=== PATIENT | female | born 1950 | race Caucasian/White ===

== ENCOUNTER 2018-09-20 21:16 | Inpatient (IN) | payer MEDICARE, MEDICAID ==
[~2018-09-20 21:16] MED LIST: ISOVUE-370 76%-LOCM 1 ML ONE
[2018-09-20 21:39] LABS: Hemoglobin 16.8 g/dL (12.0-16.0); Mean Corpuscular HGB CONC 32.2 g/dL (32.0-36.0); Mean Corpuscular Hemoglobin 30.3 pg (27.0-31.0); Mean Corpuscular Volume 94.2 fL (78.0-98.0); Mean Platelet Volume 7.8 fL (7.4-10.4); Platelet Count 345 thou/uL (130-400); RBC Distribution Width 13.4 % (11.5-14.5); Red Blood Cell (RBC) Count 5.53 mill/uL (4.20-5.40)
[2018-09-20 21:57] LABS: Band 5 % (5-11); Lymphocytes 4 % (21-51); MDiff Complete? YES; Monocytes 1 % (0-10); Neutrophil 90 % (42-75); Nucleated RBC 1 % (0); Platelet Morphology Comment Appears Adequate; RBC Morphology Normal
[2018-09-20 22:01] LABS: ALT (SGPT) 17 U/L (8-55); AST (SGOT) 15 U/L (5-34); Albumin 4.3 g/dL (3.4-4.8); Alkaline Phosphatase 180 U/L (40-150); Anion Gap 18 mmol/L (10-20); BUN (Urea Nitrogen) 14 mg/dL (9.8-20.1); Bilirubin, Total 0.5 mg/dL (0.2-1.2); CK (CPK) 26 U/L (29-168); Calc. Creatinine Clearance 0 mL/min (70-130); Calcium 10.2 mg/dL (7.8-10.44); Carbon Dioxide 17 mmol/L (23-31); Chloride 106 mmol/L (98-107); Estimated GFR-MDRD Greater than 90; Globulin 3.2 g/dL (2.4-3.5); Glucose 183 mg/dL (80-115); Potassium 3.7 mmol/L (3.5-5.1); Protein, Total 7.5 g/dL (6.0-8.3); Sodium 137 mmol/L (136-145)
[2018-09-20 22:11] LABS: Bilirubin Moderate (Negative); Blood, Urine Moderate (Negative); Clarity TURBID (Clear); Glucose, Urine (Dipstick) Negative (Negative); Leukocyte Large (Negative); Nitrite Positive (Negative); Protein, Urine (Dipstick) > or equal to 300 mg/dL (Neg-Trace); Specific Gravity, Urine 1.029 (1.002-1.036)
[2018-09-20 22:13] LABS: Yeast-AUWi Flag 6.2 (0-25.0)
[2018-09-20 22:16] LABS: Pathc Cast-AUWi Flag 2.76 (0-2.49)
--- NOTE | 2018-09-20 22:16 | RAD ---
CHEST ONE VIEW: 09/20/18 INDICATION: Nausea, vomiting from care home. COMPARISON: Prior exam dated 07/01/16. IMPRESSION: Elevation of the right hemidiaphragm. Small right pleural effusion persists. There is mild cardiomega ly. There is mild pulmonary vascular congestion. Osseous structures are unchanged. IMPRESSION: 1. Cardiomegaly with pulmonary vasculature congestion with small right pleural effusion suggests CHF. 2. Stable elevation of the right hemidiaphragm. POS: [facility]
[2018-09-20 22:24] LABS: RBC/HPF 21-50 HPF (0-3)
[2018-09-20 22:25] LABS: Bacteria/HPF 4+ HPF (None Seen); Crystals/HPF 2+ TRIPLE PHOS HPF (Negative); Hyaline Casts/LPF NONE SEEN LPF (0-3 Hyaline); Squamous Epithelial 0-3 HPF (0-3)
[2018-09-20] MEDS ORDERED: Ondansetron PF 4 MG/2 ML Vial ONE (22:54)
--- NOTE | 2018-09-20 23:28 | CT ---
CT OF THE ABDOMEN AND PELVIS WITH IV CONTRAST: 09/20/18 INDICATION: Vomiting. COMPARISON: Prior CT of the abdomen dated 05/12/03. FINDINGS: Again seen are multiple right hepatic lobe cysts. There is a small hiatal hernia. There is fluid density within the distal esophagus. There is a small right pleural effusion. The pancreas, adrenal gland and kidneys appear within normal limits. Spleen is normal appearing. There is a prominent amount of retained stool within the rectum and colon. There is fluid density see n within the ascending colon and transverse colon which can be related to mild colitis or diarrheal s mckinney. There is a suprapubic Brennan catheter in place. 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 There is a healed instrumented left hip fractur e. There is diffuse osteopenia. There is mild compression abnormality of L3 that appears chronic. IMPRESSION: 1. Fluid density seen within the right hemicolon and transverse colon can be seen with mild diar rheal states or colitis. There is prominent amount of retained stool within the rectum and sigmoid co kelsi. 2. Suprapubic bladder catheter. 3. Small right pleural effusion and right basilar atelectasis. 4. Fluid density within the esophagus may reflect reflux or dysmotility. 5. Right hepatic lobe cyst. 6. Cholecystectomy. 7. Chronic appearing L3 compression abnormality. 8. Diffuse osteopenia. 9. Fracture nonunion of right hip. POS: [facility]
[2018-09-20] MEDS ORDERED: cefTRIAXone\\ROCEPHIN 1 GM VIAL ONE (23:40)
[2018-09-21 01:09] LABS: Troponin I Less than 0.010 ng/mL (< 0.028)
--- NOTE | 2018-09-21 01:53 | HP ---
PRIMARY CARE PHYSICIAN: The patient is a senior care resident. CHIEF COMPLAINT: Nausea and vomiting. HISTORY OF PRESENT ILLNESS: Ms. Roshni Rhoades is a 68-year-old female with past medical history of multiple sclerosis, neurogenic bladder, acid reflux, hypertension, hypothyroidism, who presents to the emergency department from the senior care for intractable nausea and vomiting. The patient is a long-term resident of the senior care. She was having intractable nausea, vomiting, but denies any blood in stool, presents to the ER with complaints of nausea, and vomiting. The patient has been having difficulty tolerating her p.o. diet. The patient denies any diarrhea, does not report any abdominal pain at this point. The patient has a chronic suprapubic catheter that is changed at the senior care. CURRENT MEDICATIONS: 1. Amlodipine. 2. Baclofen. 3. Vitamin B12. 4. Mirapex. 5. Trileptal. 6. Senna. 7. Melatonin. 8. Oxybutynin. 9. Omeprazole. 10. Levothyroxine. 11. Ferrous sulfate. 12. Citalopram. Allergies: Adhesive PAST MEDICAL HISTORY: Mentioned in the HPI. PAST SURGICAL HISTORY: 1. Appendectomy. 2. Cholecystectomy. 3. Hysterectomy. SOCIAL HISTORY: The patient lives in a senior care. She does not smoke, drink , or use any illicit drugs. FAMILY HISTORY: Noncontributory, reviewed that was given by the family member. PHYSICAL EXAMINATION: VITAL SIGNS: Blood pressure 115/69, pulse rate 103, respiration rate 17, temperature 97.9, O2 saturation 99% on room air. GENERAL: The patient is alert, is conversational, but seems to be bedbound. The patient has a slow speech. HEAD: Atraumatic. EARS AND NOSE: No drainage or bleeding noted. MOUTH: No exudate. NECK: No lymphadenopathy. HEART: The patient is tachycardic, regular rhythm. No murmur, rubs, or gallops. RESPIRATORY: Clear bilaterally. No wheezes or rales. ABDOMEN: Soft, and nontender. Bowel sounds diminished. The patient has a suprapubic catheter. EXTREMITIES: No edema. No tone noted in lower extremities. NEUROLOGIC: The patient is alert. No strength in her lower extremities. SKIN: No rashes noted on observation. DIAGNOSTIC STUDIES: CT abdomen and pelvis. Impression, fluid density seen within the right hemicolon and transverse colon, it can be seen with mild diarrheal state or colitis, that is prominent amount of retained stool within the rectum and sigmoid colon, a suprapubic bladder catheter, a small right pleural effusion and right basilar atelectasis. Fluid density within the esophagus may reflect reflux or dysmotility, right hepatic lobe cysts, cholecystectomy, chronic-appearing L3 with compression abnormality, diffuse osteopenia, fracture, nonunion of right hip. Chest x-ray, cardiomegaly with pulmonary vascular congestion with small right pleural perfusion, stable, elevated right hemidiaphragm. LABORATORY DATA: WBC 17, hemoglobin 16.8, hematocrit 52.1, platelets 345. Sodium 137, potassium 3.7, chloride 106, carbon dioxide 17, BUN 14, creatinine 0.56, glucose 183. Lactic acid is 2.1. AST 15, ALT 17, alkaline phosphatase 180, and creatine kinase 26. Troponin negative. Lipase 18. Urinalysis significant for proteinuria, ketone positive, moderate amount of blood, nitrites positive, bilirubin moderate, leukocyte esterase large, RBC 12-50, WBC greater than 50, squamous epithelial 0-3. Urine bacteria 4+. ASSESSMENT AND PLAN: 1. Pyelonephritis due to urinary catheter. 2. Colitis. 3. Hypothyroidism. 4. Hypertension. 5. Gastroesophageal reflux disease. 6. Multiple sclerosis 7. Nausea and vomiting 8. Leukocytosis 9. Sepsis present on admission likely from pyelonephritis and colitis The patient was given ceftriaxone in the ER. Given UTI and possible colitis, we will switch antibiotics to Zosyn at this point. Follow blood cultures. We will keep patient n.p.o. given her nausea, vomiting. Zofran p.r.n. added. Once the patient feels better , we can start her diet. The patient at senior care is on pureed diet. We will continue with IV fluids at gentle pace. We will have home medications order once it has been verified. Repeat labs in the morning. Medical power of senior trial attorney, patient's brother. Code status, the patient is a DNR per paperwork from senior care and per family. DVT prophylaxis addressed. Job ID: [id number] [facility]
[2018-09-21 02:38] LABS: Lactic Acid 2.1 mmol/L (0.5-2.2)
[2018-09-21 02:45] VITALS: BMI 27.2
[2018-09-21] MEDS ORDERED: Ondansetron ODT 4 MG TAB SL PRN (04:35)
[2018-09-21] MEDS ORDERED: Acetaminophen 325 MG TAB PO PRN ×2 (04:35→07:48)
[2018-09-21] MEDS ORDERED: Ondansetron PF 4 MG/2 ML Vial IVP PRN (04:35)
[2018-09-21] MEDS ORDERED: 1/2 NS w/KCL 20 mEq 1,000 ML IV SCH (04:45)
[2018-09-21 05:21] LABS: Troponin I Less than 0.010 ng/mL (< 0.028)
[2018-09-21] MEDS ORDERED: Polyethylene Glycol 3350 17 GM Packet PO PRN (07:49)
[2018-09-21] MEDS ORDERED: Bisacodyl 10 MG SUPP PR PRN (07:51)
[2018-09-21] MEDS ORDERED: Fleet Enema 133 ML BOT PR PRN (07:51)
[2018-09-21] MEDS: Sodium Chloride 0.9% 1,000 ML IV SCH ×2 (08:39→21:04)
[2018-09-21] MEDS: Baclofen 10 MG TAB PO SCH ×2 (08:42→21:04)
[2018-09-21] MEDS: Citalopram 10 MG TAB PO SCH (08:42)
[2018-09-21] MEDS: Amlodipine 5 MG TAB PO SCH (08:42)
[2018-09-21] MEDS: Senokot S 8.6-50 MG TAB PO SCH ×2 (08:43→21:06)
[2018-09-21] MEDS: Levothyroxine Sodium 25 MCG TAB PO SCH (08:43)
[2018-09-21] MEDS: Cyanocobalamin (Vitamin B-12) 1,000 MCG TAB PO SCH (08:43)
[2018-09-21] MEDS ORDERED: Non-Formulary Item 1 EACH (Omeprazole [Omeprazole] 20 MG) PO SCH (09:00)
[2018-09-21] MEDS ORDERED: Prevnar 13-Val Conj/PF 0.5 ML SYRINGE IM ONE (09:00)
[2018-09-21] MEDS ORDERED: SENNOSIDES PO SCH (09:00)
[2018-09-21] MEDS ORDERED: DOCUSATE SODIUM PO SCH (09:00)
[2018-09-21] MEDS: OXcarbazepine 300 MG TAB PO SCH ×2 (09:28→21:05)
[2018-09-21] MEDS: Piperacillin/Tazobactam 3.375 GM in Sodium Chloride 0.9% 100 ML IVPB SCH ×3 (12:39→23:24)
--- NOTE | 2018-09-21 15:09 | PDOC.PN ---
- Subjective Encounter Start Date: 09/21/18 Encounter Start Time: 12:30 Subjective: lethargic, responds to verbal stimuli -: brother at bedside - Objective Resuscitation Status - Order Detail: 09/21/18 00:39 Resuscitation Status Routine Resuscitation Status: DNAR: NO Resuscitation Discussed with: per paperwork from care home and family MAR Reviewed: Yes Vital Signs & Weight: Vital Signs (12 hours) Temp Pulse Pulse Ox 09/21/18 12:00 99.5 F 09/21/18 08:42 123 H 09/21/18 08:00 100.2 F H 94 L 09/21/18 03:43 98.2 F Weight Weight 153 lb 12.8 oz Most Recent Monitor Data Heart Rate from ECG 97 NIBP 123/57 NIBP BP-Mean 79 Respiration from ECG 30 SpO2 92 I&O: 09/20/18 09/21/18 09/22/18 06:59 06:59 06:59 Intake Total 600 Output Total 375 Balance 225 Result Diagrams: 09/20/18 21:32 09/20/18 21:32 Phys Exam - Physical Examination HEENT: PERRLA, moist MMs Neck: no JVD, supple Respiratory: no wheezing, no rales Cardiovascular: RRR, no significant murmur Gastrointestinal: soft, non-tender, positive bowel sounds spc+ Musculoskeletal: no edema, pulses present has contractures of all 4 limbs, severe kyphosis Dx/Plan (1) Acute encephalopathy Code(s): G93.40 - ENCEPHALOPATHY, UNSPECIFIED Status: Acute (2) H/O multiple sclerosis Code(s): Z86.69 - PERSONAL HISTORY OF DIS OF THE NERVOUS SYS AND SENSE ORGANS Status: Chronic (3) Functional quadriplegia secondary to MS Code(s): G35 - MULTIPLE SCLEROSIS; R53.2 - FUNCTIONAL QUADRIPLEGIA Status: Chronic (4) Neurogenic bladder Code(s): N31.9 - NEUROMUSCULAR DYSFUNCTION OF BLADDER, UNSPECIFIED Status: Chronic Comment: spc+ (5) HTN (hypertension) Code(s): I10 - ESSENTIAL (PRIMARY) HYPERTENSION Status: Chronic Qualifiers: Hypertension type: essential hypertension Qualified Code(s): I10 - Essential (primary) hypertension (6) Hypothyroidism Code(s): E03.9 - HYPOTHYROIDISM, UNSPECIFIED Status: Chronic Qualifiers: Hypothyroidism type: unspecified Qualified Code(s): E03.9 - Hypothyroidism , unspecified (7) Dehydration Code(s): E86.0 - DEHYDRATION Status: Acute (8) UTI (urinary tract infection) Status: Acute Qualifiers: Urinary tract infection type: acute cystitis Hematuria presence: without hematuria Qualified Code(s): N30.00 - Acute cystitis without hematuria - Plan is on zosyn, d/w brother at bedside -: gentle iv hydration -: on trileptal, pramipexole, norvasc -: oral diet, speech eval -: poor prognosis, is DNAR * . Review of Systems - Medications/Allergies Allergies/Adverse Reactions: Allergies Allergy/AdvReac Type Severity Reaction Status Date / Time adhesive Allergy Verified 04/23/15 00:06 No Known Drug Allergies Allergy Verified 04/22/15 18:24 Medications: Current Medications Acetaminophen (Tylenol) 650 mg PO Q6H PRN PRN Reason: fever Amlodipine Besylate (Norvasc) 5 mg PO DAILY [facility] Last Admin: 09/21/18 08:42 Dose: 5 mg Baclofen (Lioresal) 30 mg PO BID [facility] Last Admin: 09/21/18 08:42 Dose: 30 mg Bisacodyl (Dulcolax) 10 mg [place] Q8H PRN PRN Reason: Constipation Citalopram Hydrobromide (Celexa) 5 mg PO Q2DAYS [facility] Last Admin: 09/21/18 08:42 Dose: 5 mg Cyanocobalamin (Vitamin B-12) 1,000 mcg PO DAILY [facility] Last Admin: 09/21/18 08:43 Dose: 1,000 mcg Piperacillin Sod/Tazobactam (Sod 3.375 gm/ Sodium Chloride) 100 mls @ 200 mls/ hr IVPB Q6HR [facility] Last Admin: 09/21/18 12:39 Dose: 100 mls Sodium Chloride (Normal Saline 0.9%) 1,000 mls @ 75 mls/hr IV .[id number] [facility] Last Admin: 09/21/18 08:39 Dose: 1,000 mls Levothyroxine Sodium (Synthroid) 25 mcg PO QAM [facility] Last Admin: 09/21/18 08:43 Dose: 25 mcg Melatonin (Melatonin) 3 mg PO HS [facility] Ondansetron HCl (Zofran) 4 mg IVP Q6H PRN PRN Reason: Nausea/Vomiting Oxcarbazepine (Trileptal) 450 mg PO BID [facility] Last Admin: 09/21/18 09:28 Dose: 450 mg Pantoprazole Sodium (Protonix) 40 mg PO DAILY [facility] Last Admin: 09/21/18 08:43 Dose: 40 mg Polyethylene Glycol (Miralax) 17 gm PO DAILY PRN PRN Reason: Constipation Pramipexole Dihydrochloride (Mirapex) 0.25 mg PO QPM [facility] Senna/Docusate Sodium (Senokot S) 2 tab PO BID [facility] Last Admin: 09/21/18 08:43 Dose: 2 tab Sodium Biphosphate/Sodium Phosphate (Fleet Enema) 133 ml [place] ONE PRN PRN Reason: constipation Stop: 09/21/18 21:00 Sodium Chloride (Flush - Normal Saline) 10 ml IVF Q12HR [facility] Last Admin: 09/21/18 09:36 Dose: 10 ml Sodium Chloride (Flush - Normal Saline) 10 ml IVF PRN PRN PRN Reason: Saline Flush
[2018-09-21] MEDS: Pramipexole Di-HCl 0.25 MG TAB PO SCH (21:06)
[2018-09-21] MEDS: Melatonin 3 MG TAB PO SCH (21:06)
[2018-09-22] MEDS: Piperacillin/Tazobactam 3.375 GM in Sodium Chloride 0.9% 100 ML IVPB SCH ×4 (06:20→23:50)
[2018-09-22] MEDS: Amlodipine 5 MG TAB PO SCH (08:47)
[2018-09-22] MEDS: Baclofen 10 MG TAB PO SCH ×2 (08:47→21:16)
[2018-09-22] MEDS: OXcarbazepine 300 MG TAB PO SCH ×2 (08:48→21:19)
[2018-09-22] MEDS: Levothyroxine Sodium 25 MCG TAB PO SCH (08:48)
[2018-09-22] MEDS: Cyanocobalamin (Vitamin B-12) 1,000 MCG TAB PO SCH (08:48)
[2018-09-22] MEDS: Senokot S 8.6-50 MG TAB PO SCH ×2 (08:50→21:20)
--- NOTE | 2018-09-22 11:03 | PDOC.PN ---
- Subjective Encounter Start Date: 09/22/18 Encounter Start Time: 09:15 Subjective: tolerating oral diet, is more awake -: no sob or abd pain -: family at bedside - Objective Resuscitation Status - Order Detail: 09/21/18 00:39 Resuscitation Status Routine Resuscitation Status: DNAR: NO Resuscitation Discussed with: per paperwork from half-way and family MAR Reviewed: Yes Vital Signs & Weight: Vital Signs (12 hours) Temp Pulse Resp BP Pulse Ox 09/22/18 08:42 98.1 F 73 18 140/63 96 09/22/18 04:00 98.3 F 69 14 121/60 95 Weight Weight 153 lb 12.8 oz Most Recent Monitor Data Heart Rate from ECG 97 NIBP 123/57 NIBP BP-Mean 79 Respiration from ECG 30 SpO2 92 I&O: 09/21/18 09/22/18 09/23/18 06:59 06:59 06:59 Intake Total 600 1688 Output Total 375 600 Balance 225 1088 Result Diagrams: 09/20/18 21:32 09/20/18 21:32 Phys Exam - Physical Examination HEENT: PERRLA, moist MMs Neck: no JVD, supple Respiratory: no wheezing, no rales Cardiovascular: RRR, no significant murmur Gastrointestinal: soft, no distention, positive bowel sounds Musculoskeletal: pulses present severe contractures of extremities Neurological: non-focal minimal movements of limbs Psychiatric: A&O x 3 Dx/Plan (1) Acute encephalopathy Code(s): G93.40 - ENCEPHALOPATHY, UNSPECIFIED Status: Acute Comment: resolving (2) H/O multiple sclerosis Code(s): Z86.69 - PERSONAL HISTORY OF DIS OF THE NERVOUS SYS AND SENSE ORGANS Status: Chronic (3) Functional quadriplegia secondary to MS Code(s): G35 - MULTIPLE SCLEROSIS; R53.2 - FUNCTIONAL QUADRIPLEGIA Status: Chronic (4) Neurogenic bladder Code(s): N31.9 - NEUROMUSCULAR DYSFUNCTION OF BLADDER, UNSPECIFIED Status: Chronic Comment: spc+ (5) HTN (hypertension) Code(s): I10 - ESSENTIAL (PRIMARY) HYPERTENSION Status: Chronic Qualifiers: Hypertension type: essential hypertension Qualified Code(s): I10 - Essential (primary) hypertension (6) Hypothyroidism Code(s): E03.9 - HYPOTHYROIDISM, UNSPECIFIED Status: Chronic Qualifiers: Hypothyroidism type: unspecified Qualified Code(s): E03.9 - Hypothyroidism , unspecified (7) Dehydration Code(s): E86.0 - DEHYDRATION Status: Acute (8) UTI (urinary tract infection) Status: Acute Qualifiers: Urinary tract infection type: acute cystitis Hematuria presence: without hematuria Qualified Code(s): N30.00 - Acute cystitis without hematuria - Plan dehydration and logan are resolving -: has started eating, aspiration precautions, has severe kyphosis/gibbus -: is on zosyn, await full cultures -: continue norvasc, baclofen, trileptal, pramipexole -: may iv fluids later this evening if she tolerates oral intake well * . Review of Systems - Medications/Allergies Allergies/Adverse Reactions: Allergies Allergy/AdvReac Type Severity Reaction Status Date / Time adhesive Allergy Verified 04/23/15 00:06 No Known Drug Allergies Allergy Verified 04/22/15 18:24 Medications: Current Medications Acetaminophen (Tylenol) 650 mg PO Q6H PRN PRN Reason: fever Amlodipine Besylate (Norvasc) 5 mg PO DAILY [facility]S [facility] BEDS AT [facility] Last Admin: 09/22/18 08:47 Dose: 5 mg Baclofen (Lioresal) 30 mg PO BID COUNTS [facility]CLUDE 234 BEDS AT [facility] Last Admin: 09/22/18 08:47 Dose: 30 mg Bisacodyl (Dulcolax) 10 mg [place] Q8H PRN PRN Reason: Constipation Citalopram Hydrobromide (Celexa) 5 mg PO Q2DAYS COUNTS INCLUDE 234 BEDS AT THE [facility] Last Admin: 09/21/18 08:42 Dose: 5 mg Cyanocobalamin (Vitamin B-12) 1,000 mcg PO DAILY COUNTS INCLUDE 234 BEDS AT THE [facility] Last Admin: 09/22/18 08:48 Dose: 1,000 mcg Piperacillin Sod/Tazobactam (Sod 3.375 gm/ Sodium Chloride) 100 mls @ 200 mls/ hr IVPB Q6HR COUNTS INCLUDE 234 BEDS AT THE [facility] Last Admin: 09/22/18 06:20 Dose: 100 mls Sodium Chloride (Normal Saline 0.9%) 1,000 mls @ 75 mls/hr IV .[id number] COUNTS INCLUDE 234 BEDS AT THE [facility] Last Admin: 09/21/18 21:04 Dose: 1,000 mls Levothyroxine Sodium (Synthroid) 25 mcg PO 0600 COUNTS [facility]CLUDE 234 BEDS AT [facility] Melatonin (Melatonin) 3 mg PO HS COUNTS [facility]CLUDE 234 BEDS AT [facility] Last Admin: 09/21/18 21:06 Dose: 3 mg Ondansetron HCl (Zofran) 4 mg IVP Q6H PRN PRN Reason: Nausea/Vomiting Oxcarbazepine (Trileptal) 450 mg PO BID COUNTS [facility]CLUDE 234 BEDS AT THE [facility] Last Admin: 09/22/18 08:48 Dose: 450 mg Pantoprazole Sodium (Protonix) 40 mg PO DAILY COUNTS [facility]CLUDE 234 BEDS AT [facility] Last Admin: 09/22/18 08:50 Dose: 40 mg Polyethylene Glycol (Miralax) 17 gm PO DAILY PRN PRN Reason: Constipation Pramipexole Dihydrochloride (Mirapex) 0.25 mg PO QPM COUNTS INCLUDE 234 BEDS AT THE [facility] Last Admin: 09/21/18 21:06 Dose: 0.25 mg Senna/Docusate Sodium (Senokot S) 2 tab PO BID COUNTS [facility]CLUDE 234 BEDS AT [facility] Last Admin: 09/22/18 08:50 Dose: 2 tab Sodium Chloride (Flush - Normal Saline) 10 ml IVF Q12HR COUNTS INCLUDE 234 BEDS AT THE [facility] Last Admin: 09/22/18 08:51 Dose: Not Given Sodium Chloride (Flush - Normal Saline) 10 ml IVF PRN PRN PRN Reason: Saline Flush
[2018-09-22] MEDS: Sodium Chloride 0.9% 1,000 ML IV SCH (14:18)
[2018-09-22] MEDS: Melatonin 3 MG TAB PO SCH (21:18)
[2018-09-22] MEDS: Pramipexole Di-HCl 0.25 MG TAB PO SCH (21:20)
[2018-09-23] MEDS: Sodium Chloride 0.9% 1,000 ML IV SCH (05:16)
[2018-09-23] MEDS: Piperacillin/Tazobactam 3.375 GM in Sodium Chloride 0.9% 100 ML IVPB SCH ×2 (05:28→11:00)
[2018-09-23] MEDS: Levothyroxine Sodium 25 MCG TAB PO SCH (05:32)
[2018-09-23 08:10] LABS: #Eosinphils 0.1 thou/uL (0.0-0.7); #Lymphocytes 1.3 thou/uL (1.20-3.40); #Monocytes 0.5 thou/uL (0.11-0.59); #Neutrophils 3.3 thou/uL (1.40-6.50); %Basophils 0.2 % (0.0-1.0); %Lymphocytes 24.2 % (21.0-51.0); %Monocytes 10.1 % (0.0-10.0); %Neutrophils 63.4 % (42.0-75.0); Hemoglobin 14.3 g/dL (12.0-16.0); Mean Corpuscular HGB CONC 32.7 g/dL (32.0-36.0); Mean Corpuscular Hemoglobin 30.7 pg (27.0-31.0); Mean Corpuscular Volume 94.1 fL (78.0-98.0); Mean Platelet Volume 7.6 fL (7.4-10.4); Platelet Count 193 thou/uL (130-400); RBC Distribution Width 13.2 % (11.5-14.5); Red Blood Cell (RBC) Count 4.66 mill/uL (4.20-5.40); White Blood Cell (WBC) Count 5.3 thou/uL (4.8-10.8)
[2018-09-23] MEDS: Citalopram 10 MG TAB PO SCH (08:19)
[2018-09-23] MEDS: Amlodipine 5 MG TAB PO SCH (08:19)
[2018-09-23] MEDS: Baclofen 10 MG TAB PO SCH ×2 (08:19→20:53)
[2018-09-23] MEDS: Cyanocobalamin (Vitamin B-12) 1,000 MCG TAB PO SCH (08:22)
[2018-09-23] MEDS: OXcarbazepine 300 MG TAB PO SCH ×2 (08:22→20:53)
[2018-09-23] MEDS: Senokot S 8.6-50 MG TAB PO SCH ×2 (08:23→20:53)
[2018-09-23 08:30] LABS: Anion Gap 15 mmol/L (10-20); BUN (Urea Nitrogen) 4 mg/dL (9.8-20.1); Calc. Creatinine Clearance 148 mL/min (70-130); Calcium 8.8 mg/dL (7.8-10.44); Carbon Dioxide 21 mmol/L (23-31); Chloride 104 mmol/L (98-107); Estimated GFR-MDRD Greater than 90; Glucose 95 mg/dL (80-115); Potassium 3.2 mmol/L (3.5-5.1); Sodium 137 mmol/L (136-145)
[2018-09-23] MEDS: Ondansetron PF 4 MG/2 ML Vial IVP PRN ×2 (09:18→20:48)
--- NOTE | 2018-09-23 09:50 | PDOC.PN ---
- Subjective Encounter Start Date: 09/23/18 Encounter Start Time: 09:00 Subjective: awake, responds well to verbal questions -: no sob - Objective Resuscitation Status - Order Detail: 09/21/18 00:39 Resuscitation Status Routine Resuscitation Status: DNAR: NO Resuscitation Discussed with: per paperwork from [facility] and family MAR Reviewed: Yes Vital Signs & Weight: Vital Signs (12 hours) Temp Pulse Resp BP Pulse Ox 09/23/18 08:16 97.6 F 75 18 179/76 H 97 09/23/18 04:00 97.4 F L 70 18 145/67 H 98 09/22/18 23:33 67 138/64 Weight Weight 153 lb 12.8 oz Most Recent Monitor Data Heart Rate from ECG 97 NIBP 123/57 NIBP BP-Mean 79 Respiration from ECG 30 SpO2 92 I&O: 09/22/18 09/23/18 09/24/18 06:59 06:59 06:59 Intake Total 1688 2389 Output Total 600 1750 Balance 1088 639 Result Diagrams: 09/23/18 07:55 09/23/18 07:55 Phys Exam - Physical Examination HEENT: PERRLA, moist MMs has patch on right eye due to diplopia Neck: no JVD, supple Respiratory: no wheezing, no rales Cardiovascular: RRR, no significant murmur Gastrointestinal: soft, non-tender, positive bowel sounds Musculoskeletal: pulses present contractures+ Neurological: non-focal does not move much due to chr contractures Psychiatric: normal affect, A&O x 3 Dx/Plan (1) Acute encephalopathy Code(s): G93.40 - ENCEPHALOPATHY, UNSPECIFIED Status: Resolved (2) H/O multiple sclerosis Code(s): Z86.69 - PERSONAL HISTORY OF DIS OF THE NERVOUS SYS AND SENSE ORGANS Status: Chronic (3) Functional quadriplegia secondary to MS Code(s): G35 - MULTIPLE SCLEROSIS; R53.2 - FUNCTIONAL QUADRIPLEGIA Status: Chronic (4) Neurogenic bladder Code(s): N31.9 - NEUROMUSCULAR DYSFUNCTION OF BLADDER, UNSPECIFIED Status: Chronic Comment: spc+ (5) HTN (hypertension) Code(s): I10 - ESSENTIAL (PRIMARY) HYPERTENSION Status: Chronic Qualifiers: Hypertension type: essential hypertension Qualified Code(s): I10 - Essential (primary) hypertension (6) Hypothyroidism Code(s): E03.9 - HYPOTHYROIDISM, UNSPECIFIED Status: Chronic Qualifiers: Hypothyroidism type: unspecified Qualified Code(s): E03.9 - Hypothyroidism , unspecified (7) Dehydration Code(s): E86.0 - DEHYDRATION Status: Acute (8) UTI (urinary tract infection) Status: Acute Qualifiers: Urinary tract infection type: acute cystitis Hematuria presence: without hematuria Qualified Code(s): N30.00 - Acute cystitis without hematuria Comment: with indwelling catheter - Plan is on zosyn, dc iv fluids -: nadia is resistant to quinolones and sulfa, await ID input -: dc antibiotics per advice -: is at her baseline cognitive status -: continue trileptal, baclofen, norvasc, celexa * . Review of Systems - Medications/Allergies Allergies/Adverse Reactions: Allergies Allergy/AdvReac Type Severity Reaction Status Date / Time adhesive Allergy Verified 04/23/15 00:06 No Known Drug Allergies Allergy Verified 04/22/15 18:24 Medications: Current Medications Acetaminophen (Tylenol) 650 mg PO Q6H PRN PRN Reason: fever Amlodipine Besylate (Norvasc) 5 mg PO DAILY [facility] Last Admin: 09/23/18 08:19 Dose: 5 mg Baclofen (Lioresal) 30 mg PO BID [facility] Last Admin: 09/23/18 08:19 Dose: 30 mg Bisacodyl (Dulcolax) 10 mg [place] Q8H PRN PRN Reason: Constipation Citalopram Hydrobromide (Celexa) 5 mg PO Q2DAYS [facility] Last Admin: 09/23/18 08:19 Dose: 5 mg Cyanocobalamin (Vitamin B-12) 1,000 mcg PO DAILY [facility] Last Admin: 09/23/18 08:22 Dose: 1,000 mcg Piperacillin Sod/Tazobactam (Sod 3.375 gm/ Sodium Chloride) 100 mls @ 200 mls/ hr IVPB Q6HR [facility] Last Admin: 09/23/18 05:28 Dose: 100 mls Sodium Chloride (Normal Saline 0.9%) 1,000 mls @ 75 mls/hr IV .[id number] [facility] Last Admin: 09/23/18 05:16 Dose: Not Given Levothyroxine Sodium (Synthroid) 25 mcg PO 0600 [facility] Last Admin: 09/23/18 05:32 Dose: 25 mcg Melatonin (Melatonin) 3 mg PO HS [facility] Last Admin: 09/22/18 21:18 Dose: 3 mg Ondansetron HCl (Zofran) 4 mg IVP Q6H PRN PRN Reason: Nausea/Vomiting Last Admin: 09/23/18 09:18 Dose: 4 mg Oxcarbazepine (Trileptal) 450 mg PO BID [facility] Last Admin: 09/23/18 08:22 Dose: 450 mg Pantoprazole Sodium (Protonix) 40 mg PO DAILY [facility] Last Admin: 09/23/18 08:23 Dose: 40 mg Polyethylene Glycol (Miralax) 17 gm PO DAILY PRN PRN Reason: Constipation Pramipexole Dihydrochloride (Mirapex) 0.25 mg PO QPM [facility] Last Admin: 09/22/18 21:20 Dose: 0.25 mg Senna/Docusate Sodium (Senokot S) 2 tab PO BID [facility] Last Admin: 09/23/18 08:23 Dose: 2 tab Sodium Chloride (Flush - Normal Saline) 10 ml IVF Q12HR [facility] Last Admin: 09/23/18 08:24 Dose: 10 ml Sodium Chloride (Flush - Normal Saline) 10 ml IVF PRN PRN PRN Reason: Saline Flush
--- NOTE | 2018-09-23 16:22 | CON ---
DATE OF CONSULTATION: REASON FOR CONSULTATION: Possible UTI. HISTORY OF PRESENT ILLNESS: A 68-year-old patient who has a history of severe multiple sclerosis with quadriplegia, neurogenic bladder, chronic suprapubic catheter, who was admitted from her long-term with repeated episodes of nausea and vomiting. According to the nursing staff about 10% of the long-term patients displayed similar symptoms around the period of time that patient became ill. This outbreak appears to be resolving now according to the nursing staff. Some of them had diarrhea associated with it. She did have some loose stool, but did not persist. On arrival, her BP was 115/69, pulse 103, respirations 17, and temperature 97.9 with O2 saturation 99%. She appears alert. She has severe neurological impairment, which hinders communication. She was tachycardic. Lungs and abdomen examination not particularly remarkable. Bowel sounds are diminished, though heart exam showed tachycardia, but no murmurs. The CT scan of the abdomen was performed on admission and this showed fluid density within the hemicolon on the right side and transverse colon with a prominent amount of retained stool within the rectum and sigmoid colon. The initial white cell count was 17,000, hemoglobin was 16, and platelets 345 with 90% neutrophils and creatinine 0.56. Liver profile, alkaline phosphatase of 180. Transaminases and bilirubin within normal limits. CK was normal at 26. Albumin 4.3. Urinalysis is greater than 50 wbc's, but this is of suprapubic catheter specimen. Microbiology with 2 sets of negative blood cultures and urine culture with E coli on nonhemolytic Streptococcus. In addition to the abdomen CT, she had a chest x-ray, which showed elevation of the right hemidiaphragm and cardiomegaly, but no infiltrates. A small pleural effusion was noted. Currently, Ms. Rhoades is lying on the right lateral decubitus. She is awake. She follows commands within the limitations of her severe neurological impairment. She has a sister in the room with her. She denies any headaches. No chest pain. Little bit of cough. No abdominal pain. She has a suprapubic catheter. I's and O's have been positive since admission. PAST MEDICAL HISTORY: Severe multiple sclerosis with quadriplegia, neurogenic bladder, suprapubic catheter, and hypertension. PAST SURGICAL HISTORY: Appendectomy, cholecystectomy, and hysterectomy. SOCIAL HISTORY: half-way resident. Never smoker. FAMILY HISTORY: Noncontributory. ALLERGIES: NONE. CURRENT MEDICATIONS: 1. Norvasc. 2. Lioresal. 3. Celexa. 4. Synthroid. 5. Melatonin. 6. Zofran. 7. Zosyn. PHYSICAL EXAMINATION: VITAL SIGNS: T-max 100.2. She is afebrile since. BP 140/70, pulse 72, respirations 18, and O2 saturation 97%. SKIN: Mild erythema in the intertriginous areas of the intergluteal folds. She has suprapubic catheter exit site, which appears normal. Peripheral IV access. HEENT: Ocular movements are conjugate. Sclerae white. Oral cavity is moist. She is able to speak with some dysarthria. Diffuse spasticity noted. Quadriparesis and quadriplegia. No jugular vein distention. LUNGS: Symmetric air entry without obvious crackles or wheezing. ABDOMEN: Soft, not distended or tender. Bladder, not distended. Diffuse spasticity in quadriplegia. NEUROLOGIC: She is awake. Knows her name. Follows commands. LABORATORY DATA: Followup labs; white cell count of 5.3, hemoglobin 14, and platelets 193. Sodium 137. Creatinine less than 0.4. Other labs as above. Microbiology with E coli and nonhemolytic strep in the urine culture. The E coli was greater than 100,000 CFUs and the E coli was resistant to quinolones. ASSESSMENT: 1. Severe multiple sclerosis with quadriplegia. 2. Episodes of nausea and vomiting with abnormalities noted on a CT scan suggestive of some form of gastroenteritis. She may have some fecal impaction as well associated with it, which has not allowed the stool testing. This episode of gastroenteritis source or what appears to be gastroenteritis was associated with an outbreak in the long-term and about 10% of the long-term patient population was affected by the similar presentation within the time period described. 3. Abnormal urinalysis with positive urine culture. 4. Neutrophilia. DISCUSSION: Differential diagnosis includes a viral gastrointestinal illness for example caused by norovirus versus bacterial gastroenteritis versus C difficile. I would advise testing of the stool specimen for norovirus as well as for C diff and for stool cultures. Evaluation and treatment of fecal impaction probably will be necessary if has not been done yet. The urinary tract findings could be related to chronic findings associated with suprapubic catheterization and most likely not the primary cause of the patient's clinical changes that led to admission. I would not advise continuation of antimicrobial therapy at this point in time. Job ID: [id number]
[2018-09-23] MEDS: Pramipexole Di-HCl 0.25 MG TAB PO SCH (20:53)
[2018-09-23] MEDS: Melatonin 3 MG TAB PO SCH (20:53)
[2018-09-24] MEDS: Levothyroxine Sodium 25 MCG TAB PO SCH (06:08)
[2018-09-24] MEDS ORDERED: Fleet Enema 133 ML BOT FS SCH (09:30)
[2018-09-24] MEDS: Baclofen 10 MG TAB PO SCH ×2 (09:56→22:15)
[2018-09-24] MEDS: Amlodipine 5 MG TAB PO SCH (09:57)
[2018-09-24] MEDS: Cyanocobalamin (Vitamin B-12) 1,000 MCG TAB PO SCH (09:57)
[2018-09-24] MEDS: OXcarbazepine 300 MG TAB PO SCH ×2 (11:11→22:17)
[2018-09-24] MEDS: Senokot S 8.6-50 MG TAB PO SCH ×2 (11:11→22:16)
--- NOTE | 2018-09-24 13:43 | PDOC.PN ---
- Subjective Encounter Start Date: 09/24/18 Encounter Start Time: 09:00 Subjective: awake, no abd pain or nausea -: family at bedside - Objective Resuscitation Status - Order Detail: 09/21/18 00:39 Resuscitation Status Routine Resuscitation Status: DNAR: NO Resuscitation Discussed with: per paperwork from long term and family MAR Reviewed: Yes Vital Signs & Weight: Vital Signs (12 hours) Temp Pulse Resp BP BP Pulse Ox 09/24/18 09:57 72 150/83 H 09/24/18 08:00 94 L 09/24/18 07:24 98.1 F 72 16 150/83 H 94 L 09/24/18 04:00 98.1 F 71 18 138/81 92 L Weight Weight 153 lb 12.8 oz Most Recent Monitor Data Heart Rate from ECG 97 NIBP 123/57 NIBP BP-Mean 79 Respiration from ECG 30 SpO2 92 I&O: 09/23/18 09/24/18 09/25/18 06:59 06:59 06:59 Intake Total 2389 218 Output Total 1750 600 Balance 639 -382 Result Diagrams: 09/23/18 07:55 09/23/18 07:55 Phys Exam - Physical Examination HEENT: PERRLA, moist MMs Neck: no JVD, supple Respiratory: no wheezing, no rales Cardiovascular: RRR, no significant murmur Gastrointestinal: soft, non-tender, positive bowel sounds Musculoskeletal: no edema, pulses present quadriparesis Psychiatric: A&O x 3 Dx/Plan (1) Acute encephalopathy Code(s): G93.40 - ENCEPHALOPATHY, UNSPECIFIED Status: Resolved (2) H/O multiple sclerosis Code(s): Z86.69 - PERSONAL HISTORY OF DIS OF THE NERVOUS SYS AND SENSE ORGANS Status: Chronic (3) Functional quadriplegia secondary to MS Code(s): G35 - MULTIPLE SCLEROSIS; R53.2 - FUNCTIONAL QUADRIPLEGIA Status: Chronic (4) Neurogenic bladder Code(s): N31.9 - NEUROMUSCULAR DYSFUNCTION OF BLADDER, UNSPECIFIED Status: Chronic Comment: spc+ (5) HTN (hypertension) Code(s): I10 - ESSENTIAL (PRIMARY) HYPERTENSION Status: Chronic Qualifiers: Hypertension type: essential hypertension Qualified Code(s): I10 - Essential (primary) hypertension (6) Hypothyroidism Code(s): E03.9 - HYPOTHYROIDISM, UNSPECIFIED Status: Chronic Qualifiers: Hypothyroidism type: unspecified Qualified Code(s): E03.9 - Hypothyroidism , unspecified (7) Dehydration Code(s): E86.0 - DEHYDRATION Status: Resolved (8) UTI (urinary tract infection) Status: Suspected Qualifiers: Urinary tract infection type: acute cystitis Hematuria presence: without hematuria Qualified Code(s): N30.00 - Acute cystitis without hematuria Comment: with indwelling catheter (9) Gastroenteritis and colitis, viral Code(s): A08.4 - VIRAL INTESTINAL INFECTION, UNSPECIFIED Status: Suspected - Plan await stool studies -: has been taken off antibiotics -: dc plan in am -: fleets enema x1, no bm since admit -: tolerating oral diet * . continue baclofen, trileptal, pramipexole and norvasc. Review of Systems - Medications/Allergies Allergies/Adverse Reactions: Allergies Allergy/AdvReac Type Severity Reaction Status Date / Time adhesive Allergy Verified 04/23/15 00:06 No Known Drug Allergies Allergy Verified 04/22/15 18:24 Medications: Current Medications Acetaminophen (Tylenol) 650 mg PO Q6H PRN PRN Reason: fever Amlodipine Besylate (Norvasc) 5 mg PO DAILY [facility] Last Admin: 09/24/18 09:57 Dose: 5 mg Baclofen (Lioresal) 30 mg PO BID [facility] Last Admin: 09/24/18 09:56 Dose: 30 mg Bisacodyl (Dulcolax) 10 mg [place] Q8H PRN PRN Reason: Constipation Citalopram Hydrobromide (Celexa) 5 mg PO Q2DAYS [facility] Last Admin: 09/23/18 08:19 Dose: 5 mg Cyanocobalamin (Vitamin B-12) 1,000 mcg PO DAILY [facility] Last Admin: 09/24/18 09:57 Dose: 1,000 mcg Levothyroxine Sodium (Synthroid) 25 mcg PO 0600 [facility] Last Admin: 09/24/18 06:08 Dose: 25 mcg Melatonin (Melatonin) 3 mg PO HS [facility] Last Admin: 09/23/18 20:53 Dose: 3 mg Ondansetron HCl (Zofran) 4 mg IVP Q6H PRN PRN Reason: Nausea/Vomiting Last Admin: 09/23/18 20:48 Dose: 4 mg Oxcarbazepine (Trileptal) 450 mg PO BID [facility] Last Admin: 09/24/18 11:11 Dose: 450 mg Pantoprazole Sodium (Protonix) 40 mg PO DAILY [facility] Last Admin: 09/24/18 09:57 Dose: 40 mg Polyethylene Glycol (Miralax) 17 gm PO DAILY PRN PRN Reason: Constipation Pramipexole Dihydrochloride (Mirapex) 0.25 mg PO QPM [facility] Last Admin: 09/23/18 20:53 Dose: 0.25 mg Senna/Docusate Sodium (Senokot S) 2 tab PO BID [facility] Last Admin: 09/24/18 11:11 Dose: 2 tab Sodium Chloride (Flush - Normal Saline) 10 ml IVF Q12HR [facility] Last Admin: 09/24/18 09:57 Dose: 10 ml Sodium Chloride (Flush - Normal Saline) 10 ml IVF PRN PRN PRN Reason: Saline Flush Last Admin: 09/23/18 20:48 Dose: 10 ml
--- NOTE | 2018-09-24 13:49 | PRG ---
DATE OF SERVICE: 09/24/2018 SUBJECTIVE: Ms. Rhoades is awake. She does not seem to be in distress. Denies any pain at this point in time. The temperature has been normal with a T-max 99.4, blood pressure 150/83, pulse is 72, and respirations 16. Neuro status is unchanged. She is awake. She has significant dysarthria, but is able to understand our questions and has a fairly decent verbal output. OBJECTIVE: LUNGS: Symmetric clear breath sounds with improvement compared with previous exam. Still with decreased aeration on the right side. HEART: S1 and S2, regular rate. ABDOMEN: Soft, not distended. NEUROLOGIC: Quadriparesis noted worse on the left side. LABORATORY DATA: White cell count 5.3, hemoglobin 14, platelets 193. Creatinine is less than 0.4. Culture with E. coli, nonhemolytic strep from urine. C. diff antigen and toxin negative. Stool lactoferrin was absent. ASSESSMENT AND DISCUSSION: Severe multiple sclerosis, episodes of nausea and vomiting and abnormalities on CT scan suggestive of some form of gastroenteritis associated with an outbreak in [facility]. The norovirus test is pending just a more likely scenario. I do not think that the urinary tract findings need to be treated at this point in time. Job ID: [id number]
[2018-09-24] MEDS: Melatonin 3 MG TAB PO SCH (22:16)
[2018-09-24] MEDS: Pramipexole Di-HCl 0.25 MG TAB PO SCH (22:17)
[2018-09-25] MEDS: Levothyroxine Sodium 25 MCG TAB PO SCH (06:25)
[2018-09-25] MEDS: Citalopram 10 MG TAB PO SCH (08:18)
[2018-09-25] MEDS: Baclofen 10 MG TAB PO SCH ×2 (08:19→21:30)
[2018-09-25] MEDS: Amlodipine 5 MG TAB PO SCH (08:19)
[2018-09-25] MEDS: Senokot S 8.6-50 MG TAB PO SCH ×2 (08:19→21:30)
[2018-09-25] MEDS: OXcarbazepine 300 MG TAB PO SCH ×2 (08:20→21:28)
[2018-09-25] MEDS: Cyanocobalamin (Vitamin B-12) 1,000 MCG TAB PO SCH (08:20)
--- NOTE | 2018-09-25 12:03 | PDOC.PN ---
- Subjective Encounter Start Date: 09/25/18 Encounter Start Time: 07:40 Subjective: no sob or abd pain -: had bm last evening after enema - Objective Resuscitation Status - Order Detail: 09/21/18 00:39 Resuscitation Status Routine Resuscitation Status: DNAR: NO Resuscitation Discussed with: per paperwork from halfway and family MAR Reviewed: Yes Vital Signs & Weight: Vital Signs (12 hours) Temp Pulse Resp BP BP Pulse Ox 09/25/18 08:19 73 137/81 09/25/18 08:00 95 09/25/18 07:47 97.8 F 73 16 137/81 95 Weight Weight 153 lb 12.8 oz Most Recent Monitor Data Heart Rate from ECG 97 NIBP 123/57 NIBP BP-Mean 79 Respiration from ECG 30 SpO2 92 I&O: 09/24/18 09/25/18 09/26/18 06:59 06:59 06:59 Intake Total 218 910 Output Total 600 1 Balance -382 909 Result Diagrams: 09/23/18 07:55 09/23/18 07:55 Phys Exam - Physical Examination HEENT: PERRLA, moist MMs Neck: no JVD, supple Respiratory: no wheezing, no rales Cardiovascular: RRR, no significant murmur Gastrointestinal: soft, non-tender, positive bowel sounds Musculoskeletal: no edema, pulses present Neurological: non-focal quadriparesis Psychiatric: A&O x 3 Dx/Plan (1) Gastroenteritis and colitis, viral Code(s): A08.4 - VIRAL INTESTINAL INFECTION, UNSPECIFIED Status: Acute (2) Acute encephalopathy Code(s): G93.40 - ENCEPHALOPATHY, UNSPECIFIED Status: Resolved (3) H/O multiple sclerosis Code(s): Z86.69 - PERSONAL HISTORY OF DIS OF THE NERVOUS SYS AND SENSE ORGANS Status: Chronic (4) Functional quadriplegia secondary to MS Code(s): G35 - MULTIPLE SCLEROSIS; R53.2 - FUNCTIONAL QUADRIPLEGIA Status: Chronic (5) Neurogenic bladder Code(s): N31.9 - NEUROMUSCULAR DYSFUNCTION OF BLADDER, UNSPECIFIED Status: Chronic Comment: spc+ (6) HTN (hypertension) Code(s): I10 - ESSENTIAL (PRIMARY) HYPERTENSION Status: Chronic Qualifiers: Hypertension type: essential hypertension Qualified Code(s): I10 - Essential (primary) hypertension (7) Hypothyroidism Code(s): E03.9 - HYPOTHYROIDISM, UNSPECIFIED Status: Chronic Qualifiers: Hypothyroidism type: unspecified Qualified Code(s): E03.9 - Hypothyroidism , unspecified (8) Dehydration Code(s): E86.0 - DEHYDRATION Status: Resolved (9) UTI (urinary tract infection) Status: Suspected Qualifiers: Urinary tract infection type: acute cystitis Hematuria presence: without hematuria Qualified Code(s): N30.00 - Acute cystitis without hematuria Comment: with indwelling catheter - Plan stool studies so far are -ve for bacterial etiology -: off iv fluids, tolerating oral diet -: dc plan in am to snf (watch for diarrhea post clearing up of hard stool) -: d/w patient and family at bedside * . Review of Systems - Medications/Allergies Allergies/Adverse Reactions: Allergies Allergy/AdvReac Type Severity Reaction Status Date / Time adhesive Allergy Verified 04/23/15 00:06 No Known Drug Allergies Allergy Verified 04/22/15 18:24 Medications: Current Medications Acetaminophen (Tylenol) 650 mg PO Q6H PRN PRN Reason: fever Amlodipine Besylate (Norvasc) 5 mg PO DAILY [facility] Last Admin: 09/25/18 08:19 Dose: 5 mg Baclofen (Lioresal) 30 mg PO BID [facility] Last Admin: 09/25/18 08:19 Dose: 30 mg Bisacodyl (Dulcolax) 10 mg [place] Q8H PRN PRN Reason: Constipation Citalopram Hydrobromide (Celexa) 5 mg PO Q2DAYS [facility] Last Admin: 09/25/18 08:18 Dose: 5 mg Cyanocobalamin (Vitamin B-12) 1,000 mcg PO DAILY [facility] Last Admin: 09/25/18 08:20 Dose: 1,000 mcg Levothyroxine Sodium (Synthroid) 25 mcg PO 0600 [facility] Last Admin: 09/25/18 06:25 Dose: 25 mcg Melatonin (Melatonin) 3 mg PO HS [facility] Last Admin: 09/24/18 22:16 Dose: 3 mg Ondansetron HCl (Zofran) 4 mg IVP Q6H PRN PRN Reason: Nausea/Vomiting Last Admin: 09/23/18 20:48 Dose: 4 mg Oxcarbazepine (Trileptal) 450 mg PO BID [facility] Last Admin: 09/25/18 08:20 Dose: 450 mg Pantoprazole Sodium (Protonix) 40 mg PO DAILY [facility] Last Admin: 09/25/18 08:20 Dose: 40 mg Polyethylene Glycol (Miralax) 17 gm PO DAILY PRN PRN Reason: Constipation Pramipexole Dihydrochloride (Mirapex) 0.25 mg PO QPM [facility] Last Admin: 09/24/18 22:17 Dose: 0.25 mg Senna/Docusate Sodium (Senokot S) 2 tab PO BID [facility] Last Admin: 09/25/18 08:19 Dose: 2 tab Sodium Chloride (Flush - Normal Saline) 10 ml IVF Q12HR [facility] Last Admin: 09/25/18 08:21 Dose: 10 ml Sodium Chloride (Flush - Normal Saline) 10 ml IVF PRN PRN PRN Reason: Saline Flush Last Admin: 09/23/18 20:48 Dose: 10 ml
[2018-09-25 13:07] LABS: #Eosinphils 0.1 thou/uL (0.0-0.7); #Lymphocytes 2.2 thou/uL (1.20-3.40); #Monocytes 0.6 thou/uL (0.11-0.59); #Neutrophils 3.5 thou/uL (1.40-6.50); %Basophils 0.5 % (0.0-1.0); %Lymphocytes 34.2 % (21.0-51.0); %Monocytes 9.7 % (0.0-10.0); %Neutrophils 53.6 % (42.0-75.0); Hemoglobin 14.8 g/dL (12.0-16.0); Mean Corpuscular HGB CONC 32.9 g/dL (32.0-36.0); Mean Corpuscular Hemoglobin 30.7 pg (27.0-31.0); Mean Corpuscular Volume 93.3 fL (78.0-98.0); Mean Platelet Volume 7.4 fL (7.4-10.4); Platelet Count 240 thou/uL (130-400); RBC Distribution Width 13.2 % (11.5-14.5); Red Blood Cell (RBC) Count 4.81 mill/uL (4.20-5.40); White Blood Cell (WBC) Count 6.5 thou/uL (4.8-10.8)
[2018-09-25 13:24] LABS: Anion Gap 12 mmol/L (10-20); BUN (Urea Nitrogen) 5 mg/dL (9.8-20.1); Calc. Creatinine Clearance 138 mL/min (70-130); Calcium 8.9 mg/dL (7.8-10.44); Carbon Dioxide 26 mmol/L (23-31); Chloride 100 mmol/L (98-107); Estimated GFR-MDRD Greater than 90; Glucose 107 mg/dL (80-115); Sodium 135 mmol/L (136-145)
[2018-09-25] MEDS: Melatonin 3 MG TAB PO SCH (21:29)
[2018-09-25] MEDS: Pramipexole Di-HCl 0.25 MG TAB PO SCH (21:30)
[2018-09-26] MEDS: Levothyroxine Sodium 25 MCG TAB PO SCH (06:24)
[2018-09-26] MEDS: OXcarbazepine 300 MG TAB PO SCH (09:00)
[2018-09-26] MEDS: Senokot S 8.6-50 MG TAB PO SCH (09:02)
[2018-09-26] MEDS: Cyanocobalamin (Vitamin B-12) 1,000 MCG TAB PO SCH (09:02)
[2018-09-26] MEDS: Baclofen 10 MG TAB PO SCH (09:03)
[2018-09-26] MEDS: Amlodipine 5 MG TAB PO SCH (09:04)
[2018-09-26] MEDS ORDERED: Potassium Chloride 20 MEQ TAB PO SCH (10:45)
[2018-09-26 12:36] VITALS: BP 151/77; TEMP 97.7
--- NOTE | 2018-09-26 12:51 | PDOC.PN ---
- Subjective Encounter Start Date: 09/26/18 Encounter Start Time: 07:00 Subjective: awake, no diarrhea or abd pain -: no nausea, tolerating oral diet - Objective Resuscitation Status - Order Detail: 09/21/18 00:39 Resuscitation Status Routine Resuscitation Status: DNAR: NO Resuscitation Discussed with: per paperwork from long term and family MAR Reviewed: Yes Vital Signs & Weight: Vital Signs (12 hours) Temp Pulse Resp BP Pulse Ox 09/26/18 12:00 97.7 F 69 20 151/77 H 97 09/26/18 09:04 72 09/26/18 08:00 97.5 F L 64 18 148/83 H 98 Weight Weight 153 lb 12.8 oz Most Recent Monitor Data Heart Rate from ECG 97 NIBP 123/57 NIBP BP-Mean 79 Respiration from ECG 30 SpO2 92 I&O: 09/25/18 09/26/18 09/27/18 06:59 06:59 06:59 Intake Total 910 1000 Output Total 1 1540 200 Balance 909 -540 -200 Result Diagrams: 09/25/18 12:53 09/25/18 12:53 Phys Exam - Physical Examination HEENT: PERRLA, moist MMs Neck: no JVD, supple Respiratory: no wheezing, no rales Cardiovascular: RRR, no significant murmur Gastrointestinal: soft, no distention, positive bowel sounds Musculoskeletal: no edema, pulses present quadriparesis Psychiatric: A&O x 3 Dx/Plan (1) Gastroenteritis and colitis, viral Code(s): A08.4 - VIRAL INTESTINAL INFECTION, UNSPECIFIED Status: Acute (2) Acute encephalopathy Code(s): G93.40 - ENCEPHALOPATHY, UNSPECIFIED Status: Resolved (3) H/O multiple sclerosis Code(s): Z86.69 - PERSONAL HISTORY OF DIS OF THE NERVOUS SYS AND SENSE ORGANS Status: Chronic (4) Functional quadriplegia secondary to MS Code(s): G35 - MULTIPLE SCLEROSIS; R53.2 - FUNCTIONAL QUADRIPLEGIA Status: Chronic (5) Neurogenic bladder Code(s): N31.9 - NEUROMUSCULAR DYSFUNCTION OF BLADDER, UNSPECIFIED Status: Chronic Comment: spc+ (6) HTN (hypertension) Code(s): I10 - ESSENTIAL (PRIMARY) HYPERTENSION Status: Chronic Qualifiers: Hypertension type: essential hypertension Qualified Code(s): I10 - Essential (primary) hypertension (7) Hypothyroidism Code(s): E03.9 - HYPOTHYROIDISM, UNSPECIFIED Status: Chronic Qualifiers: Hypothyroidism type: unspecified Qualified Code(s): E03.9 - Hypothyroidism , unspecified (8) Dehydration Code(s): E86.0 - DEHYDRATION Status: Resolved (9) UTI (urinary tract infection) Status: Suspected Qualifiers: Urinary tract infection type: acute cystitis Hematuria presence: without hematuria Qualified Code(s): N30.00 - Acute cystitis without hematuria Comment: with indwelling catheter - Plan hemostable -: one dose kdur -: may dc to snf, gastroenteritis is resolving * .
--- NOTE | 2018-09-27 14:23 | DIS ---
DATE OF ADMISSION: 09/21/2018 DATE OF DISCHARGE: 09/26/2018 DISCHARGE DISPOSITION: [facility]. PRIMARY DISCHARGE DIAGNOSES: Acute viral gastroenteritis with dehydration, resolving; acute encephalopathy on arrival, resolving. SECONDARY DISCHARGE DIAGNOSES: History of multiple sclerosis with functional quadriplegia and is essentially bed-bound with contractures, neurogenic bladder with indwelling Brennan catheter, hypertension, and hypothyroidism. PROCEDURES DONE DURING HOSPITALIZATION: Chest x-ray done showed cardiomegaly with pulmonary vascular congestion. CT of the abdomen and pelvis with IV contrast done on the day of admission showed fluid density seen in the right hemicolon and transverse colon. There is prominent amount of retained stool within the rectum and sigmoid colon. There was suprapubic bladder catheter, chronic L3 compression abnormality, diffuse osteopenia, nonunion of right hip fracture. Stool for C diff was negative. Blood cultures x2, no growth. White count of 17 on the day of admission with discharge number of 6.5. Troponin x2 negative. DISCHARGE MEDICATIONS: 1. Norvasc 5 mg p.o. q.a.m. 2. Baclofen 30 mg p.o. twice daily. 3. Cetirizine 10 mg daily. 4. Citalopram 5 mg p.o. q.2 days. 5. Ferrous sulfate 325 mg p.o. twice daily. 6. Vitamin B12 of 1000 mcg p.o. daily. 7. Synthroid 25 mcg p.o. daily. 8. Melatonin 9 mg p.o. at bedtime. 9. Omeprazole 20 mg p.o. q.a.m. 10. Trileptal 450 mg p.o. twice daily. 11. Oxybutynin extended release 10 mg daily. 12. Pramipexole 0.25 mg p.o. q.p.m. 13. Senna two tablets p.o. twice daily. ALLERGIES: NO KNOWN DRUG ALLERGIES. INPATIENT CONSULT: Dr. Concepcion for Infectious Disease. DISCHARGE PLAN: The patient is to follow up with primary care physician in one week. BRIEF COURSE DURING HOSPITALIZATION: The patient initially was sent over from [facility] for nausea, vomiting, and altered mental state. She is also very lethargic. Essentially, the patient was admitted for acute viral gastroenteritis with initial suspicion for urinary tract infection with chronic suprapubic catheter for neurogenic bladder. She has had reddy cultures done. Stool studies were negative for any bacterial infection. There was outbreak of viral gastroenteritis at the care home and likely the patient contracted it. She was dehydrated and was gently hydrated during her stay here. Prior to discharge, she is back to her baseline cognitive status. The patient has quadriplegia secondary to advanced MS and is essentially bed-bound with multiple contractures. She is hemodynamically stable and will be discharged back to care home. No antibiotics have been prescribed at the time of discharge. Her urinary tract infection is deemed to be due to colonization with chronic suprapubic catheter. Total of 35 minutes was spent on discharge plan. Please see a [id number] documentation for the day of discharge on [employer]. Job ID: [id number] [facility]
--- NOTE | 2018-09-28 14:53 | PQF ---
HARJEET HUFFMAN VINAYA KUMAR MD [id number] CLINICAL DOCUMENTATION CLARIFICATION FORM: POST DISCHARGE Please exercise your independent, professional judgment in responding to the clarification form. Clinical indicators are provided on the bottom of this form for your review Please check appropriate box(s) to clarify if the following diagnosis has been ruled in or ruled out: SEPSIS [ ] Ruled in diagnosis [ ] Continue to treat [ ] Resolved [ x ] Ruled out diagnosis [ ] Cannot rule out diagnosis [ x ] Other diagnosis Ac gastroenteritis [ ] Unable to determine CLINICAL INDICATORS - SIGNS / SYMPTOMS / LABS 09/21 H&P ASSESSMENT # 9, SEPSIS PRESENT ON ADMISSION LIKELY FROM PYELONEPHRITIS AND COLITIS 09/21 PN, ACUTE ENCEPHALOPATHY 09/22 PN, DEHYDRATION AND LIBERTAD RESOLVING 09/21 H&P TACHYCARDIA PULSE RATE 103 09/26 DS REVIEW, INITIAL SUSPICION FOR UTI...DEEMED TO BE COLONIZATION, NO ANTIBIOTICS AT DISCHARGE RISK FACTORS [facility] PATIENT MS TREATMENTS 09/21 H&P PLAN, IV FLUIDS 09/20 BLOOD CULTURES -NEGATIVE, NO GROWTH 09/23 ID CONSULT (This form is maintained as a part of the permanent medical record) 2014 [employer] All Rights Reserved Jennie [phone] MTDD
[2018-09-28 20:08] LABS: Norovirus GI Negative (Negative); Norovirus GII Negative (Negative)
== END 2018-09-26 16:42 | DRG 682 ==
LOC: ERS 21:16 → IMCU/EMU 09-21 02:28 → 2NO 09-21 15:57 → T4-B 09-23 15:07
PROVIDERS: ADMIT Family Medicine; ATTEND Family Medicine
DX: N17.9 Acute kidney failure, unspecified (principal); R53.2 Functional quadriplegia; G93.40 Encephalopathy, unspecified; A08.4 Viral intestinal infection, unspecified; E86.0 Dehydration; G35 Multiple sclerosis; N31.9 Neuromuscular dysfunction of bladder, unspecified; Z22.39 Carrier of other specified bacterial diseases; Z66 Do not resuscitate; I10 Essential (primary) hypertension; K21.9 Gastro-esophageal reflux disease without esophagitis; E03.9 Hypothyroidism, unspecified; M85.80 Other specified disorders of bone density and structure, unspecified site
CPT/HCPCS: 36415; 71045; 74177; 80048; 80053; 81003; 81015; 82550; 83605; 83630; 83690; 84484; 85025; 87040; 87077; 87086; 87186; 87324; 87449; 87798; 93005; 94760; 96361; 96365; 96375; J0696; J2405; J2543; J7050; Q9966

== ENCOUNTER 2018-11-14 22:04 | Emergency (ER) | payer MEDICARE, MEDICAID ==
[2018-11-14 22:45] LABS: Bilirubin Small (Negative); Blood, Urine Moderate (Negative); Glucose, Urine (Dipstick) Negative (Negative); Leukocyte Moderate (Negative); Nitrite Positive (Negative); Protein, Urine (Dipstick) > or equal to 300 mg/dL (Neg-Trace); Urobilinogen 0.2 mg/dL (0.2-1.0); pH, Urine 8.5 (5.0-9.0)
[2018-11-14 22:51] LABS: Clarity Turbid (Clear); Specific Gravity, Urine 1.031 (1.002-1.036)
[2018-11-14 22:53] LABS: Bacteria/HPF 4+ HPF (None Seen)
[2018-11-14] MEDS ORDERED: cefTRIAXone\\ROCEPHIN 1 GM VIAL ONE (23:04)
[2018-11-14] MEDS ORDERED: Lidocaine 1% PF 5 ML VIAL ONE (23:04)
[2018-11-14 23:06] LABS: Pathc Cast-AUWi Flag 38.13 (0-2.49); Yeast-AUWi Flag 593.2 (0-25.0)
[2018-11-14 23:07] LABS: Renal Epithelial None Seen HPF (0-3); Transitional Epithelial 0-3 HPF (0-3)
[2018-11-14 23:08] LABS: Yeast-All Forms None Seen HPF (None Seen)
[2018-11-14 23:10] LABS: Hyaline Casts/LPF NONE SEEN LPF (0-3 Hyaline); Other Casts/LPF None Seen LPF (0-3 Hyaline)
== END 2018-11-15 00:36 ==
LOC: ERS 22:04
DX: N39.0 Urinary tract infection, site not specified (principal); I10 Essential (primary) hypertension; G47.00 Insomnia, unspecified; K21.9 Gastro-esophageal reflux disease without esophagitis; D64.9 Anemia, unspecified; E03.9 Hypothyroidism, unspecified; F32.9 Major depressive disorder, single episode, unspecified; Z79.899 Other long term (current) drug therapy
CPT/HCPCS: 81003; 81015; 87077; 87086; 87186; 96372; J0696; J2001

== ENCOUNTER 2019-03-09 05:21 | Inpatient (IN) | payer MEDICARE, MEDICAID ==
[2019-03-09] MEDS ORDERED: Sodium Chloride 0.9% 100 ML ONE (05:48)
[2019-03-09] MEDS ORDERED: cefTRIAXone\\ROCEPHIN 1 GM VIAL ONE (05:48)
[2019-03-09] MEDS ORDERED: Ondansetron PF 4 MG/2 ML Vial ONE ×2 (05:48→06:49)
[2019-03-09] MEDS ORDERED: Pantoprazole 40 MG VIAL ONE (05:48)
[2019-03-09 06:10] LABS: Band 3 % (5-11); Eosinophils 4 % (0-10); Hemoglobin 15.3 g/dL (12.0-16.0); Lymphocytes 16 % (21-51); MDiff Complete? YES; Mean Corpuscular HGB CONC 34.7 g/dL (32.0-36.0); Mean Corpuscular Volume 89.6 fL (78.0-98.0); Mean Platelet Volume 7.1 fL (7.4-10.4); Monocytes 14 % (0-10); Neutrophil 62 % (42-75); PTT 32.6 SEC (22.9-36.1); Platelet Count 445 thou/uL (130-400); Platelet Morphology Comment Appears Increased; Prothrombin Time 13.2 SEC (12.0-14.7); RBC Distribution Width 12.8 % (11.5-14.5); RBC Morphology Normal; Reactive Lymphocytes 1 % (0-10); Red Blood Cell (RBC) Count 4.93 mill/uL (4.20-5.40); White Blood Cell (WBC) Count 17.1 thou/uL (4.8-10.8)
[2019-03-09 06:10] LABS: Bilirubin Small (Negative); Blood, Urine Large (Negative); Glucose, Urine (Dipstick) Negative (Negative); Leukocyte Small (Negative); Nitrite Positive (Negative); Protein, Urine (Dipstick) > or equal to 300 mg/dL (Neg-Trace)
[2019-03-09 06:12] LABS: Clarity Hazy (Clear)
[2019-03-09 06:14] LABS: Bacteria/HPF 4+ HPF (None Seen); RBC/HPF 21-50 HPF (0-3); Squamous Epithelial 0-3 HPF (0-3); WBC/HPF Greater than 50 HPF (0-3)
[2019-03-09 06:26] LABS: ALT (SGPT) 10 U/L (8-55); AST (SGOT) 11 U/L (5-34); Albumin 3.5 g/dL (3.4-4.8); Alkaline Phosphatase 139 U/L (40-150); Anion Gap 16 mmol/L (10-20); BUN (Urea Nitrogen) 8 mg/dL (9.8-20.1); Bilirubin, Total 0.3 mg/dL (0.2-1.2); CK (CPK) 21 U/L (29-168); Calc. Creatinine Clearance 0 mL/min (70-130); Carbon Dioxide 22 mmol/L (23-31); Chloride 95 mmol/L (98-107); Estimated GFR-MDRD Greater than 90; Globulin 3.2 g/dL (2.4-3.5); Glucose 175 mg/dL (80-115); Iron 35 ug/dL (50-170); Iron Binding Capacity, Total 226 mcg/dL (265-497); Potassium 3.1 mmol/L (3.5-5.1); Protein, Total 6.7 g/dL (6.0-8.3); Sodium 130 mmol/L (136-145)
[2019-03-09 06:44] LABS: Ferritin 52.6 ng/mL (10-291); Thyroid Stimulating Hormone 1.6508 uIU/mL (0.35-4.94)
[2019-03-09] MEDS ORDERED: metroNIDAZOLE 500 MG/100 ML BAG ONE (07:21)
--- NOTE | 2019-03-09 07:40 | RAD ---
EXAM: Single view of the chest HISTORY: Coffee-ground emesis COMPARISON: 09/20/2018 FINDINGS: Single view of the chest shows a normal sized cardiomediastinal silhouette. Increased inte rstitial markings are present. Atelectasis is seen in the left lung base. There is no evidence of consolidation, mass, or pleural effusion. The bones are unremarkable. IMPRESSION: No evidence of acute cardiopulmonary disease
--- NOTE | 2019-03-09 07:44 | RAD ---
EXAM: Single view of the abdomen HISTORY: Coffee-ground emesis COMPARISON: None FINDINGS: Single view of the abdomen shows a nonspecific, nonobstructive bowel gas pattern. Air is se en throughout the colon. Dense stool is seen in the left colon. No suspicious calcifications are seen. The bones are unremarkable. IMPRESSION: Nonobstructive bowel gas pattern
--- NOTE | 2019-03-09 08:16 | CT ---
CT OF ABDOMEN AND PELVIS WITH CONTRAST: COMPARISON: Reference is made to 09/20/2018. INDICATION: Abdominal distention with vomiting. FINDINGS: Redemonstration of hepatic hypodensities, which are similar-appearing indicative of cysts. Calcifica tion of the posterior segment right hepatic lobe is also similar. Diminutive left hepatic lobe is ag ain seen. The spleen is unremarkable. No hydronephrosis or suspicious lesion of the kidneys. No ad renal mass. Pancreas is unremarkable. The bowel is incompletely evaluated without enteric contrast. There is extensive distention of the distal colon, notably rectosigmoid region by large volume of r etained fecal material with associated mild wall prominence as well as pericolonic fat stranding and mild ascites. Multifocal reticulonodular opacification noted of the imaged left lower lung zone is p resent. There is mild right pleural fluid. There is fluid-filled distention of the partially imaged esophagus and a moderate hiatal hernia is present. Dependent atelectasis is present bilaterally. T here is a moderate to severe compression fracture of L3, similar-appearing. Chronic right hip fractu re deformity is noted. IMPRESSION: 1. CT findings for which stercoral colitis is the diagnosis of exclusion. Recommend surgical consul tation in this regard. 2. Findings indicative of atypical pneumonia of the left lung base. There is mild right pleural flu id. Correlate clinically. 3. Additional details are described above. POS: PAVEL
[2019-03-09] MEDS ORDERED: Ondansetron PF 4 MG/2 ML Vial IVP PRN ×2 (09:25→11:52)
[2019-03-09] MEDS ORDERED: Ondansetron ODT 4 MG TAB PO PRN ×3 (09:25→13:29)
[2019-03-09] MEDS ORDERED: Acetaminophen 325 MG TAB PO PRN ×3 (09:26→13:29)
[2019-03-09] MEDS ORDERED: Sodium Chloride 0.9% 1,000 ML IV SCH (09:30)
[2019-03-09 09:58] LABS: Lactic Acid 2.3 mmol/L (0.5-2.2)
[2019-03-09 10:43] VITALS: BMI 27.1
[2019-03-09] MEDS ORDERED: Prevnar 13-Val Conj/PF 0.5 ML SYRINGE IM ONE (11:30)
[2019-03-09] MEDS ORDERED: cefTRIAXone Sodium 2 MG in Syringe 0 ML IVPB SCH (11:45)
[2019-03-09] MEDS ORDERED: HYDROcodone/Acetaminophen 5/325 mg Tablet PO PRN (11:52)
[2019-03-09] MEDS ORDERED: Calcium Carbonate 500 MG ChewTAB PO PRN (11:52)
[2019-03-09] MEDS ORDERED: Senokot S 8.6-50 MG TAB PO PRN (11:52)
[2019-03-09] MEDS ORDERED: Baclofen 10 MG TAB PO PRN (13:29)
[2019-03-09] MEDS ORDERED: Iopamidol 370 76% 100 ML VIAL ONE (16:12)
--- NOTE | 2019-03-09 16:59 | HP ---
CHIEF COMPLAINT: Vomiting. HISTORY OF PRESENT ILLNESS: Ms. Rhoades is a very pleasant 68-year-old white female with past medical history of very advanced multiple sclerosis that has left her bedbound and severely debilitated, GERD, insomnia, hypothyroidism, seizure disorder, urinary incontinence, depression, and muscle spasms. The patient is a chronic resident of intermediate facility and has been feeling well up until recently where she started developing vomiting. At the intermediate facility there was concern that there might be some blood in the vomit. However, no further episodes of vomiting were observed once she arrived to acute care hospital. The patient' s had hemoglobin of 15.3. If the patient was having hematemesis, it was not significant enough to drop her hemoglobin. The patient was found to be septic with multiple sources of possible infection including urinary tract infection, pulmonary infiltrates, and inflammatory changes around the bowel. I find the patient in the general medical floor with her older sister at bedside who was able to aid in history. The patient answers all questions appropriately. She is alert and oriented x4. The patient's motor strength as previously stated has severely debilitated and she does have some flexion contractures throughout her body. The patient is able to move her eyes around; however, she does have double vision at baseline from multiple sclerosis. For this she wears an eye patch over her right eye. The patient has no complaints, which her sister says that she will never complain of anything. The patient denies fever or chills at this time. No abdominal pain. Breathing well on nasal cannula. Gastroenterology consultation requested for further recommendation. The patient admitted to the medical unit, broad spectrum antibiotic started, resume home medications as able. PAST MEDICAL HISTORY: 1. Multiple sclerosis that has left the patient severely debilitated with plegia and bed bound state. 2. Seizure disorder. 3. Depression. 4. Insomnia. 5. GERD. 6. Chronic constipation. 7. Overactive bladder/urinary incontinence. 8. Seasonal allergies. 9. Hypothyroidism. 10. Muscle spasms. 11. Hypertension. MEDICATIONS: Please see full home medication list for details. ALLERGIES: TO ADHESIVE TAPES. NO KNOWN DRUG ALLERGIES. PHYSICAL EXAMINATION: GENERAL: The patient is awake and alert with eyes opened in no apparent distress. VITAL SIGNS: Pulse 98, respirations 18, O2 saturation 100% on 2L nasal cannula. Blood pressure 111/75. HEENT: Right eye has eye patch over for patient's comfort to minimize blurry vision. The right eye does have intact vision per the patient. The patient does have full range of ocular movement and pupils are equally round and reactive to light and accommodation. NECK: Supple. No muscles atrophied. No JVD. CARDIOVASCULAR: Regular rate and rhythm. No appreciable murmur. No rubs or gallops. LUNGS: Decreased breath sounds bilaterally secondary to body habitus. She has scattered wheezes in the upper lung field, no rhonchi, no rales. ABDOMEN: Obese, soft, nontender. There is significant stool burden and fullness to the abdomen. BACK: Paraspinal muscles are supple without tenderness. EXTREMITIES: The patient does have flexion contractures on the left arm more significantly than the right and the patient is very stiff with passive range of motion. The patient is unable to move all 4 limbs against gravity though she is able to wriggle them slightly. NEUROLOGICAL: Cranial nerves 2 through 12 grossly intact, baseline motor deficits across the body from severe multiple sclerosis. LABORATORY DATA: WBC 17.1, RBC 4.93, hemoglobin 15.3, hematocrit 44.2, MCV 89.6 , platelets 445. PT 13.1. INR 1.0. PTT 32.6. Sodium 130, potassium 3.1, chloride 95, CO2 22, anion gap 16. Blood urea nitrogen 8, creatinine 0.5. eGFR greater than 90. Glucose 175. Lactic acid 2.3. Calcium 10.0. Iron 35. Total iron binding capacity 226. Ferritin 52. Total bilirubin 0.3, AST 11, ALT 10. Alkaline phosphatase 139. Creatinine kinase 21. Troponin less than 0.010. BNP 27.6. Albumin 3.5. Urine is abnormal for 4+ bacteria, small amount of leukocyte esterase and greater than 50 wbc count. ASSESSMENT: 1. Sepsis. 2. Leukocytosis. 3. Tachycardia. 4. Fever. 5. Urinary tract infection. 6. Vomiting, though there is low concerns for gastrointestinal bleeding at this time. 7. Severe constipation with significant stool burden and inflammatory changes of the bowel seen on CT scan of the abdomen - please see full report for details. 8. Multiple sclerosis with severe debility and muscle wasting, plegic status at baseline. 9. Seizure disorder. 10. Gastroesophageal reflux disease. 11. Depression. 12. Insomnia. 13. Hypertension. 14. Hypothyroidism. 15. Debility. PLAN: 1. Admit to medial/surgical unit. 2. Gastroenterology consultation, recommendation appreciated - May require EGD 3. Broad spectrum antibiotics with coverage for urinary tract infections and pulmonary infiltrates. 4. Intravenous fluid resuscitation. 5.De escalate to culture and sensitivity as able. 6. Resume home PPI, though no need for acute Protonix drip. 7. Continue other home medications as able. DISPOSITION: The patient with sepsis, on broad spectrum antibiotics, we will de escalate to culture and sensitivity as able. Note, the patient was initially admitted as GI bleed. After I discussed the case with Gastroenterology, this is of lower clinical suspicion at this time, no further episodes of bleeding and the patient's hemoglobin is 15.3. We will continue to monitor for bleeding. Anticipate hospitalization 2-3 days pending clinical improvement. Job ID: [id number] [place]TON
[2019-03-09] MEDS ORDERED: hydrALAZINE 20 MG/ML VIAL SLOW IVP PRN (18:19)
[2019-03-09] MEDS: Sodium Chloride 0.9% 1,000 ML IV SCH (19:00)
[2019-03-09] MEDS: Melatonin 3 MG TAB PO SCH (20:09)
[2019-03-09] MEDS: Ferrous Sulfate 325 MG TAB PO SCH (20:09)
[2019-03-09] MEDS: Senokot S 8.6-50 MG TAB PO SCH (20:10)
[2019-03-09] MEDS: Pramipexole Di-HCl 0.25 MG TAB PO SCH (20:10)
[2019-03-09] MEDS: OXcarbazepine 300 MG TAB PO SCH (20:11)
[2019-03-10] MEDS: cefTRIAXone\\ROCEPHIN 2 GM in Sodium Chloride 0.9% 100 ML IVPB SCH (06:05)
[2019-03-10 06:06] LABS: #Eosinphils 0.1 thou/uL (0.0-0.7); #Lymphocytes 1.3 thou/uL (1.20-3.40); #Monocytes 0.6 thou/uL (0.11-0.59); #Neutrophils 8.3 thou/uL (1.40-6.50); %Basophils 0.2 % (0.0-1.0); %Eosinophils 0.9 % (0.0-10.0); %Lymphocytes 12.9 % (21.0-51.0); Hemoglobin 13.1 g/dL (12.0-16.0); Mean Corpuscular HGB CONC 33.3 g/dL (32.0-36.0); Mean Corpuscular Hemoglobin 30.5 pg (27.0-31.0); Mean Corpuscular Volume 91.4 fL (78.0-98.0); Mean Platelet Volume 6.8 fL (7.4-10.4); Platelet Count 306 thou/uL (130-400); RBC Distribution Width 12.8 % (11.5-14.5); White Blood Cell (WBC) Count 10.4 thou/uL (4.8-10.8)
[2019-03-10] MEDS: Levothyroxine Sodium 25 MCG TAB PO SCH (06:06)
[2019-03-10 06:31] LABS: Anion Gap 13 mmol/L (10-20); BUN (Urea Nitrogen) 8 mg/dL (9.8-20.1); Calc. Creatinine Clearance 152 mL/min (70-130); Calcium 9.4 mg/dL (7.8-10.44); Carbon Dioxide 23 mmol/L (23-31); Chloride 99 mmol/L (98-107); Estimated GFR-MDRD Greater than 90; Glucose 113 mg/dL (80-115); Sodium 132 mmol/L (136-145)
[2019-03-10 06:34] LABS: Potassium 2.8 mmol/L (3.5-5.1)
[2019-03-10] MEDS ORDERED: Potassium Chloride 40 MEQ in Sodium Chloride 0.9% 500 ML IVPB SCH (07:45)
[2019-03-10] MEDS: Ferrous Sulfate 325 MG TAB PO SCH ×2 (08:25→20:44)
[2019-03-10] MEDS: OXcarbazepine 300 MG TAB PO SCH ×2 (08:26→20:44)
[2019-03-10] MEDS: Senokot S 8.6-50 MG TAB PO SCH ×2 (08:26→20:53)
[2019-03-10] MEDS ORDERED: Lidocaine Viscous Sol 2% 15 ml UD Cup ONE (10:53)
--- NOTE | 2019-03-10 12:48 | PDOC.HOSPP ---
- Subjective Subjective: Seen and examined. Patient NPO for procedure this AM. Denies abdominal pain. No further episodes of vomiting or GI bleeding. Breathing well. Patient in good spirits. - Objective Vital Signs & Weight: Vital Signs (12 hours) Temp Pulse Resp BP Pulse Ox 03/10/19 08:00 98 03/10/19 07:01 98.4 F 76 18 126/74 98 03/10/19 04:16 98.1 F 76 17 127/76 94 L 03/10/19 01:14 97.9 F 77 16 131/63 93 L Weight Weight 158 lb 2 oz I&O: 03/09/19 03/10/19 03/11/19 06:59 06:59 06:59 Intake Total 900 Output Total 450 Balance 450 Result Diagrams: 03/10/19 04:58 03/10/19 04:58 Radiology Reviewed by me: Yes (CT abdomen reviewed) ROS - Medication Medications: Active Medications Generic Name Dose Route Start Last Admin Trade Name Freq PRN Reason Stop Dose Admin Ferrous Sulfate 325 mg 03/09/19 21:00 03/10/19 08:25 Feosol PO Not Given BID MARY Ceftriaxone Sodium 2 gm/ 100 mls @ 0 mls/hr 03/10/19 06:00 03/10/19 06:05 Sodium Chloride IVPB 100 mls Q24HR MARY Administration Sodium Chloride 1,000 mls @ 55 mls/hr 03/09/19 18:15 03/09/19 19:00 Normal Saline 0.9% IV 03/11/19 18:16 Not Given .[id number] MARY Levothyroxine Sodium 25 mcg 03/10/19 06:00 03/10/19 06:06 Synthroid PO Not Given 0600 MARY Melatonin 9 mg 03/09/19 21:00 03/09/19 20:09 Melatonin PO 9 mg HS MARY Administration Oxcarbazepine 450 mg 03/09/19 21:00 03/10/19 08:26 Trileptal PO Not Given BID MARY Pramipexole Dihydrochloride 0.25 mg 03/09/19 21:00 03/09/19 20:10 Mirapex PO 0.25 mg QPM MARY Administration Senna/Docusate Sodium 2 tab 03/09/19 21:00 03/10/19 08:26 Senokot S PO Not Given BID MARY Sodium Chloride 10 ml 03/09/19 21:00 03/10/19 08:26 Flush - Normal Saline IVF Not Given Q12HR MARY - Exam NAD, awake alert Eye: PERRL, anicteric sclera ENT: normocephalic atraumatic, dry oral mucosa Neck: supple, no lymphadenopathy Heart: RRR, no murmur, no gallops, no rubs Respiratory: wheezes. negative: no rales, no ronchi, normal chest expansion ( Decrease resp excursion secondary to body habitus) Gastrointestinal: soft, non-tender, normal bowel sounds, no hepatomegaly, no splenomegaly Gastrointestinal - other findings: Elevated abdominal girth Extremities: no edema Skin: no lesions, no rashes Neurological: no new deficit Neurological - other findings: Patient plegic at baseline from MS, she is at her baseline per family Musculoskeletal: diffuse muscle atrophy Psychiatric: A&O x 3, flat affect Hosp A/P (1) GI bleeding Code(s): K92.2 - GASTROINTESTINAL HEMORRHAGE, UNSPECIFIED Status: Resolved (2) Upper GI bleeding Code(s): K92.2 - GASTROINTESTINAL HEMORRHAGE, UNSPECIFIED Status: Resolved (3) Multiple sclerosis Code(s): G35 - MULTIPLE SCLEROSIS Status: Chronic (4) Gastroenteritis and colitis, viral Code(s): A08.4 - VIRAL INTESTINAL INFECTION, UNSPECIFIED Status: Acute (5) Functional quadriplegia secondary to MS Code(s): G35 - MULTIPLE SCLEROSIS; R53.2 - FUNCTIONAL QUADRIPLEGIA Status: Chronic (6) HTN (hypertension) Code(s): I10 - ESSENTIAL (PRIMARY) HYPERTENSION Status: Chronic Qualifiers: Hypertension type: essential hypertension Qualified Code(s): I10 - Essential (primary) hypertension (7) Hypothyroidism Code(s): E03.9 - HYPOTHYROIDISM, UNSPECIFIED Status: Chronic Qualifiers: Hypothyroidism type: unspecified Qualified Code(s): E03.9 - Hypothyroidism , unspecified (8) Neurogenic bladder Code(s): N31.9 - NEUROMUSCULAR DYSFUNCTION OF BLADDER, UNSPECIFIED Status: Chronic (9) UTI (urinary tract infection) Status: Suspected Qualifiers: Urinary tract infection type: acute cystitis Hematuria presence: without hematuria Qualified Code(s): N30.00 - Acute cystitis without hematuria (10) Dehydration Code(s): E86.0 - DEHYDRATION Status: Resolved - Plan Plan: GI consultation, recommendations appreciated NPO for EGD Responding to IV ABX Blood Cx and urine culture consistent with skin contaminant Clinically improving on maximum medical therapy Continue home meds as able GI PPX DVT PPX - no chemical PPX with concern for GI bleeding
[2019-03-10] MEDS: Citalopram 10 MG TAB PO SCH (13:05)
[2019-03-10] MEDS: Amlodipine 5 MG TAB PO SCH (13:05)
[2019-03-10] MEDS: Loratadine 10 MG TAB PO SCH (13:05)
[2019-03-10] MEDS: Cyanocobalamin (Vitamin B-12) 1,000 MCG TAB PO SCH (13:05)
[2019-03-10] MEDS: Sodium Chloride 0.9% 1,000 ML IV SCH (13:06)
--- NOTE | 2019-03-10 14:55 | OP ---
DATE OF PROCEDURE: 03/10/2019 PROCEDURE PERFORMED: Esophagogastroduodenoscopy. PREOPERATIVE DIAGNOSIS: A 68-year-old female history of hematemesis, undergoing esophagogastroduodenoscopy. POSTOPERATIVE DIAGNOSES: 1. Normal esophageal mucosa. 2. Small hiatal hernia. 3. Mild gastritis. DESCRIPTION OF PROCEDURE: The patient was placed on her left lateral position and was given sedation by Anesthesia Department. A Pentax video gastroscope under direct vision passed down the oropharynx, past the GE junction into the stomach and subsequently into the descending duodenum. The esophageal mucosa appeared normal. There was no esophagitis seen. The GE junction, no pathology seen. She has small hiatus hernia. Retroflexion failed to show any pathology in fundus or cardia. The gastric body and antrum shows some linear erythematous streaks and mucosal hyperemia indicative of gastritis. No ulcerations. The incisura angularis, no pathology seen. The duodenal bulb and descending duodenum, no pathology seen. The stomach decompressed and the scope removed. RECOMMENDATIONS: 1. Diet as tolerated. 2. From GI standpoint, she can be discharged to the [facility]. Job ID: [id number]
[2019-03-10] MEDS: Melatonin 3 MG TAB PO SCH (20:44)
[2019-03-10] MEDS: Pramipexole Di-HCl 0.25 MG TAB PO SCH (20:45)
[2019-03-11] MEDS: Levothyroxine Sodium 25 MCG TAB PO SCH (05:00)
[2019-03-11] MEDS: cefTRIAXone\\ROCEPHIN 2 GM in Sodium Chloride 0.9% 100 ML IVPB SCH (05:00)
[2019-03-11 05:54] LABS: #Eosinphils 0.1 thou/uL (0.0-0.7); #Lymphocytes 1.6 thou/uL (1.20-3.40); #Monocytes 0.6 thou/uL (0.11-0.59); #Neutrophils 7.1 thou/uL (1.40-6.50); %Basophils 0.3 % (0.0-1.0); %Lymphocytes 16.9 % (21.0-51.0); %Monocytes 6.8 % (0.0-10.0); %Neutrophils 75.1 % (42.0-75.0); Hemoglobin 12.7 g/dL (12.0-16.0); Mean Corpuscular HGB CONC 32.9 g/dL (32.0-36.0); Mean Corpuscular Hemoglobin 29.5 pg (27.0-31.0); Mean Corpuscular Volume 89.7 fL (78.0-98.0); Mean Platelet Volume 6.7 fL (7.4-10.4); Platelet Count 333 thou/uL (130-400); RBC Distribution Width 12.7 % (11.5-14.5); Red Blood Cell (RBC) Count 4.31 mill/uL (4.20-5.40); White Blood Cell (WBC) Count 9.5 thou/uL (4.8-10.8)
[2019-03-11 06:17] LABS: Anion Gap 13 mmol/L (10-20); BUN (Urea Nitrogen) Less than 4 mg/dL (9.8-20.1); Calc. Creatinine Clearance 152 mL/min (70-130); Calcium 9.3 mg/dL (7.8-10.44); Carbon Dioxide 24 mmol/L (23-31); Chloride 94 mmol/L (98-107); Estimated GFR-MDRD Greater than 90; Glucose 106 mg/dL (80-115); Sodium 128 mmol/L (136-145)
[2019-03-11] MEDS: Senokot S 8.6-50 MG TAB PO SCH ×2 (08:48→19:52)
[2019-03-11] MEDS: Amlodipine 5 MG TAB PO SCH (08:48)
[2019-03-11] MEDS: Cyanocobalamin (Vitamin B-12) 1,000 MCG TAB PO SCH (08:48)
[2019-03-11] MEDS: Ferrous Sulfate 325 MG TAB PO SCH ×2 (08:48→19:51)
[2019-03-11] MEDS: Loratadine 10 MG TAB PO SCH (08:48)
[2019-03-11] MEDS: OXcarbazepine 300 MG TAB PO SCH ×2 (08:49→19:51)
--- NOTE | 2019-03-11 11:23 | CON ---
DATE OF CONSULTATION: 03/09/2019 REASON FOR CONSULTATION: History of hematemesis. HISTORY OF PRESENT ILLNESS: Ms. Roshni Rhoades is a very pleasant 68-year-old female, who is a skilled nursing resident. She is known to have multiple sclerosis and physically she is disabled. She usually stays in bed or the wheelchair. She also has history of seizure disorder, depression, insomnia, etc. The patient had episode of vomiting yesterday and nurse reports vomiting containing some blood. She was sent to the ER because of the vomiting of blood. The patient also had another episode of vomiting blood two days ago. The patient tells me the vomiting is painless. She has no abdominal pain. The vomiting was containing fresh blood and amount of blood was . She had a CBC done in the ER, which shows normal hemoglobin and hematocrit. Since admission to the hospital, she has had no nausea or vomiting. Abdominal CAT scan done showed a large amount of retained stool in the rectum and rectosigmoid area. There is also possibility of stercoral ulceration. The patient had a very large bowel movement this afternoon. Stool is brownish and does not have any blood or any melena. The patient denies abdominal pain. No history of any dysphagia or odynophagia. No other relevant history. MEDICAL ILLNESSES: 1. Multiple sclerosis, physically disabled. 2. Seizure disorder. 3. Depression. 4. Insomnia. 5. Chronic acid reflux. 6. Chronic constipation. 7. Overactive bladder, incontinence. 8. Seasonal allergies. 9. Hypothyroidism. 10. Muscle spasms. 11. Hypertension. ALLERGIES: ALLERGIC TO ADHESIVE TAPE. NO DRUG ALLERGIES. SOCIAL HISTORY: The patient is single. She is a skilled nursing resident. No prior history of smoking or alcohol intake. REVIEW OF SYMPTOMS: System review is totally unremarkable except for vomiting blood. PHYSICAL EXAMINATION: GENERAL: She is a very pleasant female, appears very comfortable. She has an eye patch over the right eye. VITAL SIGNS: Stable. Afebrile. Pulse is 98, blood pressure is 110/74. HEENT: Conjunctivae are clear. NECK: Supple. No adenitis or thyromegaly noted. CARDIOVASCULAR SYSTEM: Firs and second heart sounds are normal. LUNGS: Clear to auscultation. ABDOMEN: Soft and flabby. Abdomen is nontender. No organomegaly or masses. Bowel sounds are normal. EXTREMITIES: Reveal no edema. LABORATORY DATA: WBC 17,100, hemoglobin is 15.3, hematocrit 44.2, MCV 89.6, platelet count 445,000. She has normal PT and INR. Sodium 130, potassium 3.1, chloride 95, bicarb 22, blood urea nitrogen is 8, creatinine 0.5, glucose 175, lactic acid 2.6, calcium 10. Iron is 35, TIBC is 226, ferritin 52. Bilirubin 0.3, AST is 11, ALT 10, alkaline phosphatase is 139. BNP normal. CLINICAL IMPRESSION: A 68-year-old female with a history of nausea, vomiting, . Interestingly, she has no abdominal pain. She has had no more nausea or vomiting since admission. Abdomen exam is very benign. She has normal CBC. I did talk to Ms. Rhoades and her sister who is in the room. I explained to them that her blood count is stable and we might go ahead and do EGD tomorrow because of vomiting blood. She was explained about the procedure in detail. She is agreeable. Consider EGD tomorrow. Job ID: [id number]
--- NOTE | 2019-03-11 14:27 | PDOC.HOSPP ---
- Subjective Subjective: Patient seen and examined. Clinically improving. Responding to ABX, culture data reviewed, pending final results. Denies pain. Breathing well. Patient in good spirits. - Objective Vital Signs & Weight: Vital Signs (12 hours) Temp Pulse Resp BP BP Pulse Ox 03/11/19 08:48 87 144/77 H 03/11/19 08:00 98 03/11/19 07:49 98.3 F 87 16 144/77 H 98 03/11/19 04:37 98.6 F 84 18 134/75 97 Weight Admit Weight 158 lb 2 oz Weight 158 lb 2 oz I&O: 03/10/19 03/11/19 03/12/19 06:59 06:59 06:59 Intake Total 900 1680 Output Total 450 2100 Balance 450 -420 Result Diagrams: 03/11/19 05:36 03/11/19 05:36 ROS - Medication Medications: Active Medications Generic Name Dose Route Start Last Admin Trade Name Freq PRN Reason Stop Dose Admin Amlodipine Besylate 5 mg 03/10/19 09:00 03/11/19 08:48 Norvasc PO 5 mg QAM MARY Administration Citalopram Hydrobromide 10 mg 03/10/19 09:00 03/10/19 13:05 Celexa PO 10 mg Q2DAYS MARY Administration Cyanocobalamin 1,000 mcg 03/10/19 09:00 03/11/19 08:48 Vitamin B-12 PO 1,000 mcg DAILY MARY Administration Ferrous Sulfate 325 mg 03/09/19 21:00 03/11/19 08:48 Feosol PO 325 mg BID MARY Administration Ceftriaxone Sodium 2 gm/ 100 mls @ 0 mls/hr 03/10/19 06:00 03/11/19 05:00 Sodium Chloride IVPB 100 mls Q24HR MARY Administration Levothyroxine Sodium 25 mcg 03/10/19 06:00 03/11/19 05:00 Synthroid PO 25 mcg 0600 MARY Administration Loratadine 10 mg 03/10/19 09:00 03/11/19 08:48 Claritin PO 10 mg DAILY MARY Administration Melatonin 9 mg 03/09/19 21:00 03/10/19 20:44 Melatonin PO 9 mg HS MARY Administration Oxcarbazepine 450 mg 03/09/19 21:00 03/11/19 08:49 Trileptal PO 450 mg BID MARY Administration Pantoprazole Sodium 40 mg 03/10/19 09:00 03/11/19 08:51 Protonix PO 40 mg DAILY MARY Administration Pramipexole Dihydrochloride 0.25 mg 03/09/19 21:00 03/10/19 20:45 Mirapex PO 0.25 mg QPM MARY Administration Senna/Docusate Sodium 2 tab 03/09/19 21:00 03/11/19 08:48 Senokot S PO Not Given BID MARY Sodium Chloride 10 ml 03/09/19 21:00 03/11/19 08:51 Flush - Normal Saline IVF 10 ml Q12HR MARY Administration - Exam NAD, awake alert Eye: anicteric sclera Eye - other findings: Right eye with bandage on, which she states helps limit blurry vision - MS ENT: moist mucosa Neck: supple, symmetric Heart: RRR, no murmur, no gallops, no rubs Respiratory: CTAB, no wheezes, no rales Gastrointestinal: soft, non-tender, non-distended Gastrointestinal - other findings: Obese Extremities: no edema Skin: no rashes Neurological: CN's grossly intact Neurological - other findings: Plegic at baseline. Unable to move arms or legs Musculoskeletal: diffuse muscle atrophy Psychiatric: A&O x 3, flat affect Hosp A/P (1) GI bleeding Code(s): K92.2 - GASTROINTESTINAL HEMORRHAGE, UNSPECIFIED Status: Resolved (2) Upper GI bleeding Code(s): K92.2 - GASTROINTESTINAL HEMORRHAGE, UNSPECIFIED Status: Resolved (3) Multiple sclerosis Code(s): G35 - MULTIPLE SCLEROSIS Status: Chronic (4) Gastroenteritis and colitis, viral Code(s): A08.4 - VIRAL INTESTINAL INFECTION, UNSPECIFIED Status: Acute (5) Functional quadriplegia secondary to MS Code(s): G35 - MULTIPLE SCLEROSIS; R53.2 - FUNCTIONAL QUADRIPLEGIA Status: Chronic (6) HTN (hypertension) Code(s): I10 - ESSENTIAL (PRIMARY) HYPERTENSION Status: Chronic Qualifiers: Hypertension type: essential hypertension Qualified Code(s): I10 - Essential (primary) hypertension (7) Hypothyroidism Code(s): E03.9 - HYPOTHYROIDISM, UNSPECIFIED Status: Chronic Qualifiers: Hypothyroidism type: unspecified Qualified Code(s): E03.9 - Hypothyroidism , unspecified (8) Neurogenic bladder Code(s): N31.9 - NEUROMUSCULAR DYSFUNCTION OF BLADDER, UNSPECIFIED Status: Chronic (9) UTI (urinary tract infection) Status: Suspected Qualifiers: Urinary tract infection type: acute cystitis Hematuria presence: without hematuria Qualified Code(s): N30.00 - Acute cystitis without hematuria (10) Dehydration Code(s): E86.0 - DEHYDRATION Status: Resolved - Plan Plan: GI consultation, recommendations appreciated Resuming diet No further bleeding from digestive tract since admission Responding to IV ABX Blood Cx and urine culture consistent with skin contaminant Clinically improving on maximum medical therapy Continue home meds as able GI PPX DVT PPX - no chemical PPX with concern for GI bleeding on admission Anticipate D/c back to SNF where she is a chronic resident in the next 24-48 hours based on clinical improvement
[2019-03-11] MEDS: Melatonin 3 MG TAB PO SCH (19:50)
[2019-03-11] MEDS: Pramipexole Di-HCl 0.25 MG TAB PO SCH (19:51)
[2019-03-12] MEDS: cefTRIAXone\\ROCEPHIN 2 GM in Sodium Chloride 0.9% 100 ML IVPB SCH (05:02)
[2019-03-12] MEDS: Levothyroxine Sodium 25 MCG TAB PO SCH (05:04)
[2019-03-12 06:38] LABS: #Eosinphils 0.1 thou/uL (0.0-0.7); #Lymphocytes 1.5 thou/uL (1.20-3.40); #Monocytes 0.6 thou/uL (0.11-0.59); #Neutrophils 4.9 thou/uL (1.40-6.50); %Basophils 0.5 % (0.0-1.0); %Eosinophils 1.1 % (0.0-10.0); %Lymphocytes 21.5 % (21.0-51.0); %Monocytes 7.8 % (0.0-10.0); %Neutrophils 69.1 % (42.0-75.0); Hemoglobin 12.9 g/dL (12.0-16.0); Mean Corpuscular HGB CONC 34.5 g/dL (32.0-36.0); Mean Corpuscular Hemoglobin 30.7 pg (27.0-31.0); Mean Platelet Volume 6.7 fL (7.4-10.4); Platelet Count 315 thou/uL (130-400); RBC Distribution Width 12.7 % (11.5-14.5); Red Blood Cell (RBC) Count 4.21 mill/uL (4.20-5.40); White Blood Cell (WBC) Count 7.1 thou/uL (4.8-10.8)
[2019-03-12 07:05] LABS: Anion Gap 14 mmol/L (10-20); BUN (Urea Nitrogen) 4 mg/dL (9.8-20.1); Calc. Creatinine Clearance 149 mL/min (70-130); Calcium 9.4 mg/dL (7.8-10.44); Carbon Dioxide 24 mmol/L (23-31); Chloride 93 mmol/L (98-107); Estimated GFR-MDRD Greater than 90; Glucose 102 mg/dL (80-115); Potassium 2.9 mmol/L (3.5-5.1); Sodium 128 mmol/L (136-145)
[2019-03-12] MEDS ORDERED: Potassium Chloride 20 MEQ TAB PO SCH (07:45)
[2019-03-12] MEDS ORDERED: Potassium Chloride 10 MEQ in Premix Bag 1 BAG IVPB SCH (07:45)
[2019-03-12] MEDS: Cyanocobalamin (Vitamin B-12) 1,000 MCG TAB PO SCH (08:53)
[2019-03-12] MEDS: Ferrous Sulfate 325 MG TAB PO SCH (08:54)
[2019-03-12] MEDS: Amlodipine 5 MG TAB PO SCH (08:54)
[2019-03-12] MEDS: Senokot S 8.6-50 MG TAB PO SCH (08:54)
[2019-03-12] MEDS: Loratadine 10 MG TAB PO SCH (08:55)
[2019-03-12] MEDS: Citalopram 10 MG TAB PO SCH (08:55)
[2019-03-12] MEDS: OXcarbazepine 300 MG TAB PO SCH (08:56)
[2019-03-12 16:46] VITALS: BP 170/79; TEMP 98.7
--- NOTE | 2019-03-13 11:15 | DIS ---
DATE OF ADMISSION: 03/09/2019 DATE OF DISCHARGE: 03/12/2019 REASON FOR HOSPITALIZATION: Vomiting with concerns for GI bleed. SIGNIFICANT FINDINGS: The patient was found to be septic with urinary tract infection. PROCEDURES PERFORMED AND TREATMENTS RENDERED: The patient underwent endoscopy on 03/10/2019. Please see full report for details. The patient was placed on IV antibiotics for urinary tract infection with good improvement of symptoms. CONDITION ON DISCHARGE: Stable. SPECIFIC INSTRUCTIONS FOR THE PATIENT AND FAMILY: 1. The patient to be transferred back to shelter facility, where she is a chronic resident. 2. The patient recommended to complete a full course of oral antibiotics at shelter [facility]. 3. The patient is to follow up with admitting physician at [facility] for further management. DISCHARGE MEDICATIONS: Please see full medication list for details. The patient was given a prescription for cefpodoxime 200 mg one tab p.o. q.12 hours for an additional 5 days, 10 tablets. HOSPITAL COURSE: Ms. Rhoades is a very pleasant 68-year-old female with past medical history of advanced multiple sclerosis who is severely debilitated, resulting in near complete below the neck plegia. The patient is able to move her arms slightly, however, she is fairly weak and does get chronic infections. The patient has had a suprapubic catheter for several years and frequently gets urinary tract infections from this. The patient was admitted to [facility] on 03/09/2019. There was initial reports of vomiting with concern for blood in the vomitus and a Gastroenterology consultation was requested. The patient underwent endoscopy on 03/10/2019, please see full operative report for details. The patient tolerated the procedure well without intraoperative complications. The patient had blood cultures and urine cultures, unfortunately they did not demonstrate any specific organisms or targeted therapy and they were consistent contaminant of normal skin ashok. The patient initially presenting with with sepsis and high WBC count, was started on IV antibiotics resulting in normalization of her WBC count to a level of 7.1 on the day of discharge. The patient's electrolytes and renal function were all normalized prior to discharge. The patient recommended safer discharge back to shelter [facility], where she is a chronic resident. The patient is to resume all home medication aside from new oral antibiotics for the next 5 days. Job ID: [id number] [facility]
== END 2019-03-12 16:50 | DRG 871 ==
LOC: ERS 05:21 → T4-A 08:54
PROVIDERS: ADMIT Internal Medicine; ATTEND Internal Medicine
PROC: 0DJ08ZZ Inspection of Upper Intestinal Tract, Via Natural or Artificial Opening Endoscopic (ICD-10-PCS; principal; 2019-03-10)
DX: A41.9 Sepsis, unspecified organism (principal); R53.2 Functional quadriplegia; K92.2 Gastrointestinal hemorrhage, unspecified; N30.00 Acute cystitis without hematuria; A08.4 Viral intestinal infection, unspecified; G35 Multiple sclerosis; N31.9 Neuromuscular dysfunction of bladder, unspecified; E86.0 Dehydration; I10 Essential (primary) hypertension; E03.9 Hypothyroidism, unspecified; K44.9 Diaphragmatic hernia without obstruction or gangrene; G40.909 Epilepsy, unspecified, not intractable, without status epilepticus; K21.9 Gastro-esophageal reflux disease without esophagitis; D64.9 Anemia, unspecified; F32.9 Major depressive disorder, single episode, unspecified; G47.00 Insomnia, unspecified; K59.09 Other constipation; N32.81 Overactive bladder; J30.2 Other seasonal allergic rhinitis; Z99.3 Dependence on wheelchair; Z74.01 Bed confinement status
CPT/HCPCS: 36415; 71045; 74018; 74177; 80048; 80053; 81003; 81015; 82274; 82550; 82728; 83540; 83550; 83605; 83880; 84443; 84484; 85025; 85610; 85730; 86850; 86900; 86901; 87040; 87077; 87086; 87149; 93005; 94760; C9113; J0696; J2405; J3480; J3490; J7050; Q9967